=== PATIENT | male | born 1930 | race Caucasian/White ===

== ENCOUNTER 2017-03-14 21:11 | Inpatient (IN) | payer MEDICARE, OTHER ==
[2017-03-14 21:53] LABS: #Eosinphils 0.4 thou/uL (0.0-0.7); #Lymphocytes 1.8 thou/uL (1.20-3.40); #Monocytes 0.9 thou/uL (0.11-0.59); #Neutrophils 5.4 thou/uL (1.40-6.50); %Basophils 0.3 % (0.0-1.0); %Eosinophils 5.1 % (0.0-10.0); %Lymphocytes 20.8 % (21.0-51.0); %Monocytes 10.4 % (0.0-10.0); Hematocrit 39.5 % (42.0-52.0); Mean Platelet Volume 8.3 fL (7.4-10.4); White Blood Cell (WBC) Count 8.5 thou/uL (4.8-10.8)
[2017-03-14 22:01] LABS: PTT 30.7 SEC (22.9-36.1); Prothrombin Time 13.3 SEC (12.0-14.7)
[2017-03-14 22:13] LABS: ALT (SGPT) 22 U/L (8-55); AST (SGOT) 26 U/L (5-34); Alkaline Phosphatase 69 U/L (40-150); Anion Gap 14 mmol/L (10-20); BUN (Urea Nitrogen) 18 mg/dL (8.4-25.7); Bilirubin, Total 0.5 mg/dL (0.2-1.2); CK (CPK) 112 U/L (30-200); Calc. Creatinine Clearance 0 mL/min (70-130); Carbon Dioxide 25 mmol/L (23-31); Chloride 101 mmol/L (98-107); Estimated GFR-MDRD 68; Globulin 3.5 g/dL (2.4-3.5); Lipase 102 U/L (8-78); Magnesium 2.1 mg/dL (1.6-2.6)
[2017-03-14 22:17] LABS: Troponin I 0.013 ng/mL (< 0.028)
--- NOTE | 2017-03-14 23:58 | RAD ---
PORTABLE CHEST: Date: 03-14-17 Provided Clinical History: Chest pain. FINDINGS: Comparison 06-20-14. Heart size is within normal limits for portable technique. The lungs are hypoinflated. Pleural and/or parenchymal opacity at the left lung base may be present. Median sternotomy changes are seen. No azucena dence for pneumothorax. IMPRESSION: Hypoinflated exam with possible left basilar and pleural parenchymal opacity. Follow up is recommende d. POS: [facility]
[2017-03-15 00:34] LABS: Bilirubin Negative (Negative); Blood, Urine Large (Negative); Glucose, Urine (Dipstick) Negative (Negative); Ketone, Urine Negative (Negative); Nitrite Negative (Negative); Protein, Urine (Dipstick) Trace mg/dL (Neg-Trace); Urobilinogen 0.2 mg/dL (0.2-1.0)
[2017-03-15 00:36] LABS: Bacteria/HPF None Seen HPF (None Seen); Hyaline Casts/LPF 0-3 HYALINE CAST LPF (0-3 Hyaline); RBC/HPF GREATER THAN 50-TNTC HPF (0-3); Squamous Epithelial None Seen HPF (0-3); WBC/HPF 0-3 HPF (0-3)
[2017-03-15] MEDS ORDERED: hydrALAZINE 20 MG/ML VIAL ONE (02:11)
[2017-03-15] MEDS ORDERED: Nitroglycerin 2% Ointment 1 INCH/1 GM Packet ONE (02:34)
[2017-03-15 03:54] LABS: Troponin I 0.043 ng/mL (< 0.028)
--- NOTE | 2017-03-15 06:28 | HP-2 ---
TIME OF DATE OF SERVICE: 299 DATE OF ADMISSION: 03/15/2017 CODE STATUS: FULL. PRIMARY CARE PHYSICIAN: Dr. Regino Friend ATTENDING: Dr. Jasen Bell RESIDENT: Dr. Victor Hugo Tejada HISTORIAN: The patient. SPECIALISTS: Cardiology, Dr. William. CHIEF COMPLAINT: High blood pressure. HISTORY OF PRESENT ILLNESS: Jose Mascorro is an 87-year-old man with past medical history of hyperten balbir, hyperlipidemia, and coronary artery disease status post CABG x2 and stent placement x2, present s with high blood pressure. This evening he was at home and had a sudden sensation that legs were go ing to give out and he abruptly sat down on the ground. At that time, his checked his blood pre ssure and his systolic blood pressure was 215. He states that he is compliant on his medications. Jose vasquez did not have any other symptoms. He denies loss of consciousness. He denies any seizure-like acti vity. He denies any headache or vision changes. He also reports hematuria for the past 2 days as we ll. He denies any chest pain, dyspnea, abdominal pain or flank pain. Blood pressure at home normall y runs around the 150s/60. The patient is currently asymptomatic. In the ER, the patient received h ydralazine, aspirin, and nitro. PAST MEDICAL HISTORY: 1. Coronary artery disease, status post CABG and stent placement. 2. Hypertension. 3. Hyperlipidemia. PAST SURGICAL HISTORY: 1. CABG in 2012 x 2. 2. Stent placement x2. 3. Hernia repair. 4. Aortic valve replacement. 5. Tonsillectomy. ALLERGIES: No known drug allergies. MEDICATIONS: 1. Atorvastatin 20 mg p.o. at bedtime. 2. Omeprazole 20 mg p.o. daily. 3. Lisinopril 20 mg p.o. daily. 4. Doxazosin 2 mg p.o. daily. 5. Aspirin 325 mg p.o. daily. 6. Furosemide 20 mg p.o. daily. 7. Carvedilol 3.125 mg p.o. b.i.d. 8. Hydralazine 75 mg p.o. b.i.d. with meals. FAMILY HISTORY: Unremarkable. SOCIAL HISTORY: The patient denies alcohol, smoking or drug use. The patient is and his 63 year anniversary was the day of admission. REVIEW OF SYSTEMS: Twelve point review of systems including general, eyes, ENT, respiratory, CV, GI, , skin, musculoskeletal, neuro and psych were reviewed and were negative, unless otherwise stated in the HPI. PHYSICAL EXAMINATION: VITAL SIGNS: Blood pressure 191/103, pulse 69, respiratory rate 16, temperature is 98.1, pulse ox 96 % on room air, current weight 74 kilograms. GENERAL: The patient is alert and oriented x4, in no acute distress. Well-developed, well-nourished and appropriately interactive. EYES: Pupils equal, round, react to light and accommodation. Extraocular muscles intact. Conjuncti vae within normal limits. ENT: Tympanic membranes pearly murray without bulging or erythema. Nasal mucosa and oropharynx within normal limits. NECK: Supple without lymphadenopathy or thyromegaly. CARDIOVASCULAR: Regular rate and rhythm. No murmurs or gallops. Radial pulses and pedal pulses equ al bilaterally. RESPIRATORY: Normal effort, no retractions. LUNGS: Clear to auscultation. SKIN: Warm and dry without cyanosis or lesions. ABDOMEN: Soft, nontender, bowel sounds x4. No mass or distention. EXTREMITIES: No clubbing or cyanosis. There is trace bilateral lower extremity edema. MUSCULOSKELETAL: Structure and tone within normal limits. Full range of motion. NEUROLOGIC: No focal deficits. Sensation within normal limits. PSYCHIATRIC: Appropriate. LABORATORY DATA: White blood cell count 8.5, hemoglobin 12.8, hematocrit 39.5, MCV 85. Sodium 136, potassium 3.8, chloride 101, carbon dioxide 25, BUN 18, creatinine 1.04, GFR 68, glucose 187, calcium 9.0, total protein 7.0, albumin 3.5, total bilirubin 0.5, AST 26, ALT 22, alkaline phosphatase 69. Prolactin 38.75, mag 2.1. D-dimer 1.79. PT 13.3, INR 1.0, PTT 30.7, CK 112, CK-MB 3.0, troponin 0.0 13, lipase 102. BNP 337. UA significant for large blood, trace leukocyte esterase and greater than 50 red blood cells. EKG showed sinus rhythm with PVCs. No ischemic changes. We will repeat EKG thi s morning. Chest x-ray showed hypoinflated exam with possible left basilar and pleural parenchymal o pacity. ASSESSMENT AND PLAN: An 87-year-old man presents with hypertensive urgency with past medical histor y of hypertension, hyperlipidemia, coronary artery disease status post coronary artery bypass graft x 2 and stent placement x2. 1. Hypertensive urgency. He was placed on tele observation. Restart home blood pressure medication s. Trend cardiac enzymes. Check transthoracic echocardiogram. Check TSH. Recheck EKG this morning . Heart healthy diet. Monitor blood pressures. Consider Cardiology consult. 2. Hematuria, 4 episodes over the last 2 days. History of enlarged prostate. No signs or physical symptoms of kidney stones or urinary tract infection. Urine was not grossly bloody in the ER. Trend H&H. CT of the abdomen showed no bladder mass. May need outpatient workup. We are checking urine culture here. 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 No history of seizure activity. 4. Hypertension. Continue home medications. 5. Hyperlipidemia. Continue home statin. 6. Coronary artery disease, hold aspirin at this time. 7 Activity: Ambulate with assist. 8. Diet: Heart healthy. 9. Code status: Full code. DISPOSITION/LENGTH OF HOSPITAL STAY: 1-2 days. Symptomatic medications will be provided. History and physical exam as well as management discussed with Dr. Bell.
[2017-03-15 06:38] LABS: Troponin I 0.047 ng/mL (< 0.028)
--- NOTE | 2017-03-15 07:33 | CT ---
PRELIMINARY REPORT/[facility]/EMERGENCY AFTER HOURS PROCEDURE: EXAM: CT Head Without Intravenous Contrast CLINICAL HISTORY: 87 years old, male; Signs and symptoms; Altered mental status/memory loss; Patient HX: Ams/confusion; 87m presents with high blood pressure this evening. Patient reports a history of high blood pressure . Denies chest pain and shortness of breath. Reports he felt like his "legs were going to give out" so he sat down and then checked his blood pressure. Reports it was 215 systolic. Report s he is compliant with his medication. Also reports hematuria x 2 days. Denies abdominal pain, denies flank pain. TECHNIQUE: Axial computed tomography images of the head/brain without intravenous contrast. COMPARISON: No relevant prior studies available. FINDINGS: Brain: Age appropriate atrophy and small vessel ischemic change. No mass effect, midline shift or ext ra axial fluid collections. Ojeda-white matter differentiation is normal. No hemorrhage. Ventricles: Unremarkable. No ventriculomegaly. Bones/joints: Unremarkable. No acute fracture. Soft tissues: Unremarkable. Vasculature: Carotid and vertebral artery atherosclerotic calcification. Sinuses: Mucosal thickening in the ethmoid and maxillary sinuses. Mastoid air cells: Unremarkable as visualized. No mastoid effusion. Orbits: The patient has had bilateral lens replacement surgery. IMPRESSION: No acute findings. Thank you for allowing us to participate in the care of your patient. Dictated and Authenticated by: Luís Shields MD 03/15/2017 1:52 AM Central Time ([place] & [place]) FINAL REPORT EXAM: NONCONTRAST HEAD CT HISTORY: Hypertension. Altered mental status. Weakness. COMPARISON: None. TECHNIQUE: Noncontrast head CT is performed from skull base to skull vertex. FINDINGS/IMPRESSION: This report is in agreement with the preliminary report by [facility]. No acute intracranial process. POS: [facility]
--- NOTE | 2017-03-15 07:55 | CT ---
PRELIMINARY REPORT/[facility]/EMERGENCY AFTER HOURS PROCEDURE: EXAM: CT Angiography Chest With Intravenous Contrast CLINICAL HISTORY: 87 years old, male; Signs and symptoms and abnormal findings; Abnormal lab test; Other: Elevated d-di triston; Other: Hematuria; Abnormal diagnostic tests; Patient HX: 87m presents with high blood pressure t his evening. Patient reports a history of high blood pressure. Denies chest pain and shortness of juvenal ath. Reports he felt like his "legs were going to give out" so he sat down and then checked his blood pressure. Reports it was 215 systolic. Reports he is compliant with his medication. Also reports hem aturia x 2 days. Denies abdominal pain, denies flank pain. TECHNIQUE: Axial computed tomographic angiography images of the chest with intravenous contrast using pulmonary embolism protocol. MIP reconstructed images were created and reviewed. Coronal reformatted images were created and reviewed. CONTRAST: 95 mL of ISOVUE 370 administered intravenously. COMPARISON: No relevant prior studies available. FINDINGS: Pulmonary arteries: Unremarkable. No pulmonary embolism. Aorta: No acute findings. No thoracic aortic aneurysm or dissection. Lungs: Atelectasis at the lung bases. No mass. Pleural space: There is a small left pleural effusion. No pneumothorax. Heart: Cardiomegaly with coronary artery and valvular calcifications. No significant pericardial effusion. No evidence of RV dysfunction. Mediastinum: There is a small hiatal hernia. Bones/joints: No acute fracture. No dislocation. Soft tissues: Unremarkable. Lymph nodes: Unremarkable. No enlarged lymph nodes. IMPRESSION: No acute findings. Hiatal hernia. Cardiomegaly. Small left pleural effusion. Thank you for allowing us to participate in the care of your patient. Dictated and Authenticated by: Luís Shields MD 03/15/2017 2:14 AM Central Time ([place] & [place]) FINAL REPORT CT ARTERIOGRAM CHEST WITH IV CONTRAST AND 3D MIP IMAGIN03/15/2017 Performed on an emergency basis at 0122 hours. HISTORY: Chest pain. Dyspnea. FINDINGS/IMPRESSION: The findings agree with the preliminary report by Dr. Shields from [facility]. There is no CT e vidence of pulmonary embolus. Heart is slightly enlarged. There is minimal pleural effusion and mil d patchy bibasilar infiltrates that are less pronounced than on the prior study from 06/20/2014. Code QA. POS: [facility]
--- NOTE | 2017-03-15 08:17 | CT ---
PRELIMINARY REPORT/[facility]/EMERGENCY AFTER HOURS PROCEDURE: EXAM: CT Abdomen and Pelvis With Intravenous Contrast CLINICAL HISTORY: 87 years old, male; Signs and symptoms and abnormal findings; Abnormal lab test; Other: Elevated d-di triston; Other: Hematuria; Abnormal diagnostic tests; Patient HX: 87m presents with high blood pressure t his evening. Patient reports a history of high blood pressure. Denies chest pain and shortness of juvenal ath. Reports he felt like his "legs were going to give out" so he sat down and then checked his blood pressure. Reports it was 215 systolic. Reports he is compliant with his medication. Also reports h ematuria x 2 days. Denies abdominal pain, denies flank pain. TECHNIQUE: Axial computed tomography images of the abdomen and pelvis with intravenous contrast. MIP reconstructed images were created and reviewed. Coronal reformatted images were created and reviewed. CONTRAST: 95 mL of ISOVUE 370 administered intravenously. COMPARISON: No relevant prior studies available. FINDINGS: ABDOMEN: Liver: Unremarkable. No mass. Gallbladder and bile ducts: Unremarkable. No calcified stones. No ductal dilation. Pancreas: Unremarkable. No mass. No ductal dilation. Spleen: Unremarkable. No splenomegaly. Adrenals: Unremarkable. No mass. Kidneys and ureters: Unremarkable. No solid mass. No hydronephrosis. Stomach and bowel: Small ventral hernia containing mesenteric fat but no bowel. No obstruction. No m ucosal thickening. Appendix: No findings to suggest acute appendicitis. PELVIS: Bladder: Unremarkable. No mass. Reproductive: The prostate is enlarged, measuring 5.7 x 4.9 cm. ABDOMEN and PELVIS: Intraperitoneal space: Unremarkable. No free air. No significant fluid collection. Bones/joints: No acute fracture. No dislocation. Soft tissues: Unremarkable. Vasculature: There is severe aortoiliac atherosclerosis. No abdominal aortic aneurysm. Lymph nodes: Unremarkable. No enlarged lymph nodes. IMPRESSION: Ventral hernia. Prostatomegaly. Severe atherosclerosis. Thank you for allowing us to participate in the care of your patient. Dictated and Authenticated by: Luís Shields MD 03/15/2017 2:14 AM Central Time ([place] & [place]) FINAL REPORT CT ABDOMEN AND PELVIS WITH CONTRAST: Date: 03/15/17 HISTORY: Kidney mass. COMPARISON: None. FINDINGS: Please see the CT angiogram of the chest for intrathoracic findings. There is a fat-containing ventra l hernia supraumbilical just below the xiphoid process. The spleen, liver, and gallbladder are all un remarkable. Moderate size sliding hiatal hernia. There is low grade inflammatory stranding around the pancreatic tail. No renal mass is appreciated. Moderate atherosclerotic plaque throughout the aortoi liac system. No aneurysmal dilatation. No retroperitoneal adenopathy. No dilated loops of large or sm all bowel. There is mild diverticular disease of the sigmoid colon without active inflammation. No fr ee intraperitoneal gas or fluid. Moderate degenerative disc space height loss L4-5 and L5-S1 with end plate sclerosis. There appears t o be further loss of normal density to the trabecula of the axial skeleton which can be seen with ronald donal hyperparathyroidism. IMPRESSION: 1. Low grade inflammatory stranding around the pancreatic tail may represent focal pancreatitis. Rec ommend correlation with patient's lab values. 2. Skeletal findings suggestive of hyperparathyroidism. 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 3. Fat-containing subxiphoid ventral hernia. This report is in agreement with the preliminary report given by [facility]. POS: [facility]
[2017-03-15 11:13] LABS: Troponin I 0.045 ng/mL (< 0.028)
[2017-03-15] MEDS ORDERED: ISOVUE-370 76%-LOCM 1 ML ONE (11:42)
--- NOTE | 2017-03-15 13:19 | PDOC.EVN ---
Attending Addendum - Attending Addendum I personally evaluated the patient and discussed the management with Dr. Tejada. I agree with the History, Examination, Assessment and Plan documented in his H& P with any addition or exceptions noted below. Patient with normally well controlled BP admitted for elevation of blood pressure and generalized weakness. His exam is overtly normal. It is possible that he did not take his medications yesterday. We will resume home BP regimen and up titrate as needed. Echo has been ordered as patient has no known history of cardiac disase but has elevated BNP. He also reports hematuria over the last few days, with apparent small clots in his urine noted today by nursing. We will work to visually confirm, and likely consult urology at that time. Not on anticoagulants, and Hgb stable. CT did not show pelvic mass but did indicate prostate enlargement. Will await further recs but likely needs cystoscopy inpatient versus outpatient. Trend trops though likely elevated 2/2 HTN urgency and unlikely to be ACS related.
[2017-03-15 14:14] VITALS: BMI 27.7
[2017-03-15] MEDS: Lisinopril 20 MG TAB PO SCH ×2 (14:26→20:37)
[2017-03-15] MEDS: hydrALAZINE 25 MG TAB PO SCH ×2 (14:26→20:37)
[2017-03-15] MEDS: Doxazosin Mesylate 4 MG TAB PO SCH (14:26)
[2017-03-15] MEDS: Carvedilol 3.125 MG TAB PO SCH ×2 (14:26→16:42)
[2017-03-15] MEDS: Furosemide 20 MG TAB PO SCH (14:26)
[2017-03-15] MEDS ORDERED: Atorvastatin Calcium 20 MG TAB PO SCH (21:00)
[2017-03-16 05:57] LABS: #Eosinphils 0.2 thou/uL (0.0-0.7); #Lymphocytes 1.5 thou/uL (1.20-3.40); #Monocytes 0.7 thou/uL (0.11-0.59); #Neutrophils 6.2 thou/uL (1.40-6.50); %Basophils 0.1 % (0.0-1.0); %Eosinophils 2.8 % (0.0-10.0); %Lymphocytes 17.3 % (21.0-51.0); %Monocytes 8.5 % (0.0-10.0); Hematocrit 36.4 % (42.0-52.0); Mean Platelet Volume 8.2 fL (7.4-10.4); Red Blood Cell (RBC) Count 4.24 mill/uL (4.70-6.10); White Blood Cell (WBC) Count 8.8 thou/uL (4.8-10.8)
--- NOTE | 2017-03-16 06:09 | CON ---
DATE OF CONSULTATION: 03/15/2017 This is an 87-year-old white male I have been asked to see today, 03/15/2017, because of gross hematu lamar. He came in today with hypertension, weakness, fatigue, not feeling well. He was found to be fa irly significantly hypertensive. He also had some abnormal cardiac studies and he is being evaluated by Cardiology and had some nitroglycerin on his chest. He stated he started having some blood in hi s urine 2 days ago, did not have fever, chills, did not have flank pain, did not have dysuria, just s ome blood. The only medicine he takes that would affect his clotting ability is aspirin, and he is c urrently being held on that. He had prostate surgery a number of years ago in [place], [place] for benign disease. He has difficulty with urinating. He saw Dr. Cortez Galdamez in the past, but has not s een him recently, has no diagnosis of prostate cancer. He has never had kidney stones. He has not h ad any bladder infections to his knowledge. He has never seen blood in his urine before. He gets up at most, once at night, sometimes not at all. He has no daytime urgency or incontinence. He has go t what he describes as a good force of stream and feels like he empties okay. He has no family histo ry of prostate cancer. PAST MEDICAL HISTORY: He has had coronary artery disease. He has had both bypass and stent placemen t. He has hypertension and hyperlipidemia, reflux disease. PAST SURGICAL HISTORY: He has had hernia repairs. He has had a valve replacement and he has had ton sils. ALLERGIES: He has no drug allergies. ROUTINE MEDICATIONS: Atorvastatin, omeprazole, lisinopril, Cardura 2 mg daily, aspirin, Lasix, carve dilol, hydralazine. SOCIAL HISTORY: Does not smoke. PHYSICAL EXAMINATION: His flanks are nontender. His abdomen is soft. Bladder is not distended. He is not circumcised, but there is no phimosis or lesions. Testicles descended without mass or tender ness with his blood pressure and his potential cardiac problems. I did not do a rectal exam today. LABORATORY: His hemoglobin is 12.8. His white count is 8.5. His platelet count is 227. His coags are normal. It does not appear that he has a creatinine drawn. He has got some cardiac enzymes. Harish vasquez will go ahead do a.m. lab and order Chem-7. I do not see any microbiology, his urinalysis shows gr eater than 50 red cells, 0-3 white cells, no bacteria were seen. His vital signs currently, he is af ebrile. Blood pressure is still up, but is not anywhere near as high as it was. IMPRESSION: Gross hematuria, new finding on the 87-year-old gentleman with no prior significant uro logic history except for a TURP years ago in [place], [place]. I have reviewed his CAT scan and to me the kidneys look fine. I did not see any solid or cystic mass. No hydronephrosis. The bladder w as not empty, but there is no filling defect obviously noted and the prostate is enlarged. PLAN: At this time, will be to continue with serial three glass urine, I have reviewed it. It is cl earing, there is little clot in his last one, but it is really not that bloody, hopefully we can avoi d a catheter. We will hold his aspirin. He will need a cystoscopic exam as long as his urine is mary carmen aring. We will just hold on doing the cystoscopy until March. We will check urine culture to be s ure he does not have an associated urinary tract infection, but that would seem unlikely.
[2017-03-16 06:27] LABS: Anion Gap 10 mmol/L (10-20); BUN (Urea Nitrogen) 9 mg/dL (8.4-25.7); Calc. Creatinine Clearance 70 mL/min (70-130); Calcium 8.5 mg/dL (7.8-10.44); Carbon Dioxide 26 mmol/L (23-31); Chloride 101 mmol/L (98-107); Estimated GFR-MDRD 85
--- NOTE | 2017-03-16 08:44 | PDOC.FM ---
Addendum entered and electronically signed by Eamon Cervantes MD 03/16/17 11:34 : Working up to r/o Stroke After hearing from walking program assessment and talking with patient went and did a full neuro exam. They said he had a real abnormal gait and really weak. Came in due CN2,3,4,5,5 intact. CN7 possibly affected as tongue protruded right, possible facial droop noted when asking him to smile. CN 8,9,10, 11,12 intact. Strength 5/5 in UE bilaterally. Strength 5/5 in LE bilaterally. 2/3 clonus noted in R. leg Dysmetria noted on finger to nose to finger test. Rapid alternating movments negative heel to valera negative. Gait was very abnormal. Had a high kick. Very uncoordinated. wobbly. Very weak. could only take a few steps. Could not test romberg as patient was too weak to hold himself up. Exam concerning for possible stroke, possible insult to cerebellum. CT head was Negative. Will order MRI at this time. Original Note: - Subjective Subjective: Pt doing well this morning. Says he is ready to go home. Denies any headaches, dizziness, lightheadness. Denies any chest pain. Denies any acute events overnight. Says blood in urine is improving. Says it is getting traffic chief. - Objective MAR Reviewed: Yes Vital Signs & Weight: Vital Signs (12 hours) Temp Pulse Resp BP Pulse Ox 03/16/17 08:10 97.4 F L 81 16 200/90 H 97 03/16/17 07:25 98.0 F 66 20 03/16/17 04:15 98.0 F 66 20 174/76 H 96 03/15/17 23:13 98.8 F 68 18 168/73 H 96 Weight Weight 80.314 kg I&O: 03/15/17 03/16/17 03/17/17 06:59 06:59 06:59 Intake Total 240 Output Total 1200 Balance -960 Result Diagrams: 03/16/17 05:02 03/16/17 05:02 Radiology Reviewed by me: Yes Radiology: 03/15 CTA: No acute findings. Minimal pleural effusion and mild patchy bibasilar infiltrates that are less pronounced from prior study. Cardiomegaly 03/15 CT head: No acute findings 03/15 CT Ab/Pelvis: Low grade inflammatory stranding around pancreatic tail may represent focal pancreatitis. Skeletal findings suggestive of hyperparathyroidism. 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 Fat containg subxiphoid ventral hernia. \ 03/15 CXR: hypoinflated exam w/ possible left basilar and pleural parenchymal opacity. <Eamon Cervantes - Last Filed: 03/16/17 08:42> - Objective Vital Signs & Weight: Vital Signs (12 hours) Temp Pulse Resp BP BP Pulse Ox 03/16/17 11:06 97.6 F 61 18 203/98 H 97 03/16/17 09:29 153/67 H 03/16/17 09:28 81 03/16/17 08:10 97.4 F L 81 16 200/90 H 97 03/16/17 07:25 98.0 F 66 20 03/16/17 04:15 98.0 F 66 20 174/76 H 96 Weight Weight 80.314 kg I&O: 03/15/17 03/16/17 03/17/17 06:59 06:59 06:59 Intake Total 240 250 Output Total 1200 Balance -960 250 Result Diagrams: 03/16/17 05:02 03/16/17 05:02 <Jasen Bell - Last Filed: 03/16/17 12:26> Phys Exam - Physical Examination HEENT: PERRLA, moist MMs, oral pharynx no lesions Neck: no nodes, no JVD, supple, full ROM Respiratory: no wheezing, no rales, no rhonchi, clear to auscultation bilateral Cardiovascular: RRR, no significant murmur, no rub Gastrointestinal: soft, non-tender, no distention, positive bowel sounds Musculoskeletal: no edema, pulses present Neurological: non-focal, moves all 4 limbs Lymphatic: no nodes Psychiatric: normal affect Skin: no rash, normal turgor <Eamon Cervantes - Last Filed: 03/16/17 08:42> Dx/Plan (1) Hypertensive urgency Code(s): I10 - ESSENTIAL (PRIMARY) HYPERTENSION Status: Acute Plan: SBP still elevated in 170 to 200 overnight and this morning. DBP stable. Maxed out on 3 of his BP medications. Increased Carvedilol at this time. -May have some underlying renal dz causing resistant htn. Cr stable though at this time. -Elevated BP may be related to age and anatomy of vessels. Has high difference b /w SBP and DBP. -Will continue to monitor BP and adjust carvedilol more. -Denies any sx's of htn emergency at this time. (2) Hematuria Code(s): R31.9 - HEMATURIA, UNSPECIFIED Status: Acute Plan: -Bloody urine starting a few days ago. Had a few clots pass. Still able to pee at this time. -Urology Consulted- Dr. Blake. -Got serial urines x3. Improved over the course. Plan is to f/u outpt with possible cystoscopy in Mar. -Will follow recommendations (3) HLD (hyperlipidemia) Code(s): E78.5 - HYPERLIPIDEMIA, UNSPECIFIED Status: Chronic Plan: continue home meds (4) S/P CABG (coronary artery bypass graft) Code(s): Z95.1 - PRESENCE OF AORTOCORONARY BYPASS GRAFT Status: Chronic Plan: -Aspirin being held due to hematuria. -Continuing all other home medications at this time. <Eamon Cervantes - Last Filed: 03/16/17 08:42> Attending Addendum - Attending Addendum I personally evaluated the patient and discussed the management with Dr. Cervantes. I agree with the History, Examination, Assessment and Plan documented above with any addition or exceptions noted below. Patient continues to have elevated blood pressures. On questioning this morning , he reports abnormal gait that began yesterday associated with diffuse lower extremity weakness. He has an abnormal neuro exam that is concerning for CVA or mass. Elevated prolactin. Will obtain MRI brain. Needs escalation of BP meds to get better control of uncontrolled HTN. <Jasen Bell - Last Filed: 03/16/17 12:26>
[2017-03-16] MEDS ORDERED: Ondansetron HCl/PF 4 MG/2 ML Vial IVP PRN (09:05)
[2017-03-16] MEDS ORDERED: Ondansetron HCl 4 MG/5 ML UDCUP PO PRN (09:05)
[2017-03-16] MEDS ORDERED: Acetaminophen 325 MG TAB PO PRN (09:05)
[2017-03-16] MEDS: hydrALAZINE 25 MG TAB PO SCH ×2 (09:28→21:07)
[2017-03-16] MEDS: Furosemide 20 MG TAB PO SCH (09:29)
[2017-03-16] MEDS: Carvedilol 6.25 MG TAB PO SCH ×2 (09:29→17:16)
[2017-03-16] MEDS: Lisinopril 20 MG TAB PO SCH ×2 (09:29→21:08)
[2017-03-16] MEDS ORDERED: Potassium Chloride 20 MEQ TAB PO SCH (09:30)
[2017-03-16] MEDS: Doxazosin Mesylate 4 MG TAB PO SCH (09:32)
[2017-03-16] MEDS ORDERED: Gadobenate Dimeglumine 529 MG/1 ML (20ML VIAL) ONE (12:08)
--- NOTE | 2017-03-16 15:54 | MRI ---
MRI BRAIN WITH AND WITHOUT CONTRAST: 03/16/17 Multiplanar and multisequential imaging of the brain obtained pre and postcontrast. Postcontrast imag es were obtained after administration of 16 mL of Multihance IV. HISTORY: Altered mental status. Questioned stroke. Correlation made to CT of 03/15/17. FINDINGS: There is mild cortical atrophy. Very mild ischemic white matter changes are seen. There is no evidence of restricted diffusion. No evidence of mass, infarct or hemorrhage. No abnormal enhancement identified. Intracranial internal carotid arteries and proximal cerebral arteries show f low voids. There is increased T2 signal in the left mastoid air cells consistent with mucosal edema. IMPRESSION: No evidence of acute infarct. There is moderate cortical atrophy and very mild ischemic change noted. POS: [facility]
[2017-03-16] MEDS ORDERED: Labetalol HCl 100 MG/20 ML VIAL SLOW IVP PRN (17:20)
[2017-03-16] MEDS ORDERED: Spironolactone 25 MG TAB PO SCH (17:30)
[2017-03-16] MEDS: Atorvastatin Calcium 40 MG TAB PO SCH (21:07)
[2017-03-16] MEDS: Famotidine 20 MG TAB PO SCH (21:07)
--- NOTE | 2017-03-16 22:39 | CON ---
DATE OF CONSULTATION: 03/16/2017 REFERRING PROVIDER: Dr. Markus Bush. REASON FOR CONSULTATION: Bilateral lower extremity weakness. HISTORY OF PRESENT ILLNESS: Mr. Mascorro is a pleasant 87-year-old male who has been consulte d for evaluation of bilateral lower extremity weakness and abnormal gait. History is obtained from [facility] as well as patient who are both good historians. Patient reports that on Tuesday aftern oon he had a sudden onset of weakness in both legs and he fell to the ground. He noted that he was h aving difficulty with coordinating with his legs. He also was having a hard time with standing up an d walking. For this reason, he decided to present to the [facility]. He did not have any numbness, tingling, or weakness in lower extremities. He did not have any numbness, tingling, o r weakness in upper extremities. There was no complaint of headache, neck pain, or back pain, althou gh mentions that he did complain of having a back pain when he stooped down. He did not complai n of having vision changes, diplopia, ptosis, facial numbness, dysarthria, or dysphagia, lightheadedn ess, or dizziness. reports that his balance has gotten a little bit better since he has been he re, but he still requires walker for support. PAST MEDICAL HISTORY: Significant for hypertension, hyperlipidemia, coronary artery disease. PAST SURGICAL HISTORY: Significant for CABG in 2012, cardiac stent placement x2, hernia repair, aort ic valve replacement, and tonsillectomy. CURRENT MEDICATIONS: Please review MAR. ALLERGIES: No known drug allergies. FAMILY HISTORY: Noncontributory. SOCIAL HISTORY: He denies smoking, alcohol use, or illicit drug use. He is . REVIEW OF SYSTEMS: As mentioned in the HPI, otherwise negative. PHYSICAL EXAMINATION: VITAL SIGNS: Blood pressure of 196/87, pulse of 71, temperature of 97.9, respirations of 16, O2 sats of 95% on room air. GENERAL: Well-developed, well-nourished male in no apparent distress. RESPIRATORY: Clear to auscultation bilaterally. CARDIOVASCULAR: Regular rate and rhythm. NEUROLOGIC: Mental status: Patient is awake, alert, oriented x3. Speech and language: Fluent spee ch. Cranial nerves: Pupils are 3 mm and reactive. Visual yeager are intact, Extraocular muscles ar e intact. No nystagmus is noted. Face is symmetric. Tongue and uvula are midline. Motor exam show ed normal tone and bulk with 5/5 strength in both upper and lower extremities. Sensory: Sensation i s intact and symmetric. Deep tendon reflexes 2+ reflexes in both upper and lower extremities. Jono ski: Plantar responses flexion bilaterally. Coordination intact to [id number] tapping bilat erally. There was a mention of clonus noted by physical therapist on the right lower extremity as we ll as left lower extremity; however, I did not appreciate any clonus on my exam, there was also menti on of a facial droop noted per resident report, however, again I do not appreciate any facial droop o r facial asymmetry on my exam. [id number] test on my examination was normal on both sides. LABORATORY DATA: Reviewed, which included CBC, BMP, troponin, TSH, liver panel, CK-MB, CPK, and urin alysis, which is significant for hemoglobin 11.7, hematocrit of 36.4. Sodium of 134, potassium 3.4, troponin of 0.045. BNP of 337.3, otherwise unremarkable. IMAGING STUDIES: MRI brain without contrast was reviewed, which showed no acute intracranial abnorma lity. Echocardiogram results were reviewed, which showed EF of 60-65% without any wall motion abnorm ality or intracardiac mass or thrombus. There is moderate mitral and tricuspid regurgitation noted. IMPRESSION: Bilateral lower extremity weakness, unknown clear etiology. Mr. Mascorro is a pleasant 87- year-old male who presented with the acute onset of bilateral lower extremity weakness and difficulty with gait imbalance. On exam, I do not appreciate any new focal neurological deficit. Al though, I was not able to get him up off the bed to walk. I have reviewed his MRI brain with and wit hout contrast that was done earlier today, which showed no acute intracranial abnormality. At this t theresa, I will recommend continuing physical therapy. I would obtain MRI C-spine and L-spine without co ntrast to rule out underlying spinal Pathology. Continue supportive care. Thank you for consultation.
[2017-03-17] MEDS ORDERED: hydrALAZINE 20 MG/ML VIAL SLOW IVP SCH (00:15)
[2017-03-17] MEDS: Carvedilol 6.25 MG TAB PO SCH ×2 (07:21→18:17)
[2017-03-17] MEDS: Lisinopril 20 MG TAB PO SCH ×2 (07:22→20:00)
[2017-03-17] MEDS: hydrALAZINE 25 MG TAB PO SCH ×3 (07:22→22:08)
[2017-03-17 07:33] LABS: #Eosinphils 0.1 thou/uL (0.0-0.7); #Monocytes 0.8 thou/uL (0.11-0.59); #Neutrophils 7.8 thou/uL (1.40-6.50); %Basophils 0.2 % (0.0-1.0); %Eosinophils 1.1 % (0.0-10.0); %Lymphocytes 10.3 % (21.0-51.0); %Monocytes 8.3 % (0.0-10.0); Hematocrit 38.9 % (42.0-52.0); Mean Platelet Volume 8.1 fL (7.4-10.4); Red Blood Cell (RBC) Count 4.56 mill/uL (4.70-6.10); White Blood Cell (WBC) Count 9.8 thou/uL (4.8-10.8)
[2017-03-17] MEDS: Furosemide 20 MG TAB PO SCH ×2 (08:08→15:16)
[2017-03-17] MEDS: Doxazosin Mesylate 4 MG TAB PO SCH (08:08)
[2017-03-17] MEDS: Spironolactone 25 MG TAB PO SCH (08:08)
[2017-03-17] MEDS: Famotidine 20 MG TAB PO SCH ×2 (08:08→19:59)
[2017-03-17 08:12] LABS: Anion Gap 13 mmol/L (10-20); BUN (Urea Nitrogen) 9 mg/dL (8.4-25.7); Calc. Creatinine Clearance 71 mL/min (70-130); Calcium 8.7 mg/dL (7.8-10.44); Carbon Dioxide 21 mmol/L (23-31); Chloride 98 mmol/L (98-107); Estimated GFR-MDRD Greater than 90
--- NOTE | 2017-03-17 08:33 | PDOC.FM ---
- Subjective Subjective: Pt reports doing fine this morning. Denies any acute events overnight. Denies any chest pain. Denies any headaches, change in vision, or diziness. Denies any numbness or tingling. Still reports being very weak when he tries and stands and tries to walk. - Objective Vital Signs & Weight: Vital Signs (12 hours) Temp Pulse Resp BP BP Pulse Ox 03/17/17 08:00 75 157/77 H 03/17/17 03:39 98.2 F 63 18 194/77 H 94 L 03/17/17 01:11 183/69 H 03/17/17 00:08 68 209/79 H 03/16/17 23:04 98.8 F 69 16 211/82 H 95 Weight Weight 77.519 kg I&O: 03/16/17 03/17/17 03/18/17 06:59 06:59 06:59 Intake Total 240 660 Output Total 1200 1100 Balance -960 440 Result Diagrams: 03/17/17 06:57 03/17/17 06:57 Radiology Reviewed by me: Yes Radiology: MRI Head: Negative for any acute ischemia, mod cortical atrophy, and mild ischemic changes <Eamon Cervantes - Last Filed: 03/17/17 08:31> - Objective Vital Signs & Weight: Vital Signs (12 hours) Temp Pulse Resp BP Pulse Ox 03/17/17 12:16 75 03/17/17 11:10 186/86 H 03/17/17 08:00 75 157/77 H 03/17/17 07:15 97.4 F L 70 20 216/90 H 95 03/17/17 03:39 98.2 F 63 18 194/77 H 94 L 03/17/17 01:11 183/69 H Weight Weight 77.519 kg I&O: 03/16/17 03/17/17 03/18/17 06:59 06:59 06:59 Intake Total 240 660 Output Total 1200 1100 Balance -960 -440 Result Diagrams: 03/17/17 06:57 03/17/17 06:57 <Jasen Bell - Last Filed: 03/17/17 12:36> Phys Exam - Physical Examination HEENT: moist MMs, oral pharynx no lesions Neck: no nodes, no JVD, supple, full ROM Respiratory: no wheezing, no rales, no rhonchi, clear to auscultation bilateral Cardiovascular: RRR, no significant murmur, no rub Gastrointestinal: soft, non-tender, no distention, positive bowel sounds Musculoskeletal: no edema, pulses present strenght 5/5 in arms and legs bilaterally when pushing against. Neurological: non-focal, normal sensation, moves all 4 limbs CN 2-12 grossly intact this morning. No facial droop noted. No numbness reported. Gait sitll abnormal. Very weak standing Lymphatic: no nodes Psychiatric: normal affect, A&O x 3 Skin: no rash, normal turgor, cap refill <2 seconds <Eamon Cervantes - Last Filed: 03/17/17 08:31> Dx/Plan (1) Abnormality of gait and mobility Code(s): R26.9 - UNSPECIFIED ABNORMALITIES OF GAIT AND MOBILITY Status: Acute Plan: Yesterday patient had soldier like gait. Very uncoordinated. Was very weak. Could barely stand on his own with walker. Yesterday had some tongue protrusion. Since then CN2-12 grossly intact this morning. Still very weak with gait and mobility. MRI Head yesterday showed no acute infarct -Neurology Consulted- Dr. Beckett- ordered MRI C-spine and L-spine. -Read MRI as negative. Rehab Screening pending as pt will likely need intensive therapy outpt for weakness. PT recommends rehab pending dishcarge. PT/OT to continue to treat. (2) Hypertensive urgency Code(s): I10 - ESSENTIAL (PRIMARY) HYPERTENSION Status: Acute Plan: SBP still elevated in 170 to 200 overnight and this morning. DBP stable. Increased Carvedilol at this time. -May have some underlying renal dz causing resistant htn. Cr stable though at this time. -Renin and Aldosterone activity pending. -Elevated BP may be related to age and anatomy of vessels. Has high difference b /w SBP and DBP. -Will continue to monitor BP and adjust carvedilol more. Will also switch his hydralazine to TID. -Denies any sx's of htn emergency at this time. (3) Hematuria Code(s): R31.9 - HEMATURIA, UNSPECIFIED Status: Acute Plan: -Bloody urine starting a few days ago. Had a few clots pass. Still able to pee at this time. Urine clearing up at this time. -Urology Consulted- Dr. Blake. -Got serial urines x3. Improved over the course. Plan is to f/u outpt with possible cystoscopy in Mar. -Will follow recommendations (4) HLD (hyperlipidemia) Code(s): E78.5 - HYPERLIPIDEMIA, UNSPECIFIED Status: Chronic Plan: continue home meds (5) S/P CABG (coronary artery bypass graft) Code(s): Z95.1 - PRESENCE OF AORTOCORONARY BYPASS GRAFT Status: Chronic Plan: -Aspirin being held due to hematuria. -Continuing all other home medications at this time. <Eamon Cervantes - Last Filed: 03/17/17 08:31> Attending Addendum - Attending Addendum I personally evaluated the patient and discussed the management with Dr. Cervantes. I agree with the History, Examination, Assessment and Plan documented above with any addition or exceptions noted below. Patient continues to have extremely elevated blood pressures, labile, despite multiple medication adjustments in his regimen. Fortunately, he has no complaints of chest pain, shortness of breath, or headache. He is requiring additional antihypertensive therapy and increases in previous medications. Further, he was found yesterday to have abnormal neurological exam, particularly regarding his gait, which has only been present over the last 2-3 days per . Neurology consulted who recommends MRI of lumbar and cervical spine. I would consider possible dorsal column lesion in spine that might account for his dramatic loss of propioreception. Awaiting reports of those scans. Patient is unsafe at home as he can take no more than a few steps without significant weakness. Await scan report and neurology recs. Patient is not currently stable for discharge at this time. <Jasen Bell - Last Filed: 03/17/17 12:36>
[2017-03-17] MEDS ORDERED: hydrALAZINE 20 MG/ML VIAL SLOW IVP PRN ×2 (11:15→13:12)
[2017-03-17] MEDS ORDERED: Sodium Chloride 0.9% 1,000 ML IV SCH (13:30)
--- NOTE | 2017-03-17 15:14 | MRI ---
MRI CERVICAL SPINE: Date: 03/17/17 HISTORY: Bilateral lower extremity weakness. TECHNIQUE: Multiplanar, multisequence noncontrast enhanced MRI of cervical spine obtained. FINDINGS: MRI images are of minimal diagnostic quality due to patient motion. There is so much motion that ther e is significant degradation of MRI imaging findings. The spinal cord is grossly unremarkable. There is disc desiccation with broad based posterior osteoph yte minimally but not significantly compressing the thecal sac. The neural foramen are in the cervica l spine and are difficult to assess due to patient motion. No evidence of compression fractures of th e vertebra seen. IMPRESSION: Limited exam due to patient motion. There is some disc space height loss and a broad based disc osteo phyte complex at C5-6. The rest of the cervical spine is difficult to assess due to patient motion. POS: [facility]
--- NOTE | 2017-03-17 15:21 | MRI ---
MRI LUMBAR SPINE: Date: 03/17/17 HISTORY: Bilateral lower extremity. TECHNIQUE: Multiplanar, multisequence noncontrast enhanced MRI images of lumbar spine obtained. RADIOGRAPHIC FINDINGS: For the purposes of this dictation, the last freely mobile vertebral body will be considered to be th e L5 vertebral body. All other vertebral bodies are numbered according to this. T12-L1: Unremarkable. L1-2: There is some mild bilateral facet and ligamentum flavum hypertrophy. The central canal and neural fo ramen are patent. L2-3: Disc desiccation is seen. There is a broad based central disc osteophyte complex compressing the thec al sac. Bilateral facet and ligamentum flavum hypertrophy is seen. This results in a moderate degree of central and lateral recess stenosis. Mild to moderate left and mild right-sided neural foraminal n arrowing is seen. L3-4: Disc desiccation is seen. There is a broad based disc bulge with bilateral facet and ligamentum flavu m hypertrophy. This results in moderate to severe central L3-4 central and lateral recess stenosis. T here is moderate bilateral L3-4 neural foraminal narrowing seen. \ L4-5: Disc desiccation is seen. There is a broad based disc osteophyte complex centrally compressing the th ecal sac. Bilateral facet and ligamentum flavum hypertrophy is seen. This results in critical central and L4-5 lateral recess stenosis. Moderate bilateral neural foraminal narrowing is seen. L5-S1: Disc desiccation is seen. There is a broad based disc bulge with bilateral facet hypertrophy. This re sults in a moderate degree of central and lateral recess stenosis. There is moderate to severe bilate ral neural foraminal narrowing seen. 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 Bilateral L4-5 and L5-S1 ne ural foraminal narrowing also seen. There is also some moderate L3-4 central and lateral recess steno sis seen. POS: [facility]
[2017-03-17] MEDS: Atorvastatin Calcium 40 MG TAB PO SCH (19:58)
[2017-03-18] MEDS: Melatonin 3 MG TAB PO PRN (01:46)
[2017-03-18] MEDS: hydrALAZINE 20 MG/ML VIAL SLOW IVP PRN ×2 (01:46→05:24)
[2017-03-18] MEDS ORDERED: Haloperidol 1 MG TAB PO SCH (04:00)
[2017-03-18 05:45] LABS: #Eosinphils 0.2 thou/uL (0.0-0.7); #Lymphocytes 1.1 thou/uL (1.20-3.40); #Monocytes 1.1 thou/uL (0.11-0.59); %Basophils 0.2 % (0.0-1.0); %Lymphocytes 9.3 % (21.0-51.0); %Monocytes 9.5 % (0.0-10.0); Hematocrit 36.2 % (42.0-52.0); Mean Platelet Volume 7.9 fL (7.4-10.4); Red Blood Cell (RBC) Count 4.28 mill/uL (4.70-6.10); White Blood Cell (WBC) Count 11.4 thou/uL (4.8-10.8)
[2017-03-18 06:34] LABS: Anion Gap 13 mmol/L (10-20); BUN (Urea Nitrogen) 12 mg/dL (8.4-25.7); Calc. Creatinine Clearance 71 mL/min (70-130); Calcium 8.7 mg/dL (7.8-10.44); Carbon Dioxide 24 mmol/L (23-31); Chloride 91 mmol/L (98-107); Estimated GFR-MDRD Greater than 90
--- NOTE | 2017-03-18 08:23 | PDOC.FM ---
- Subjective Subjective: Pt doing okay this morning. Is alert and oriented x2. Pt is up in bed and eating. During eating he had a coughing episode. Noted expiratory audible wheezes on exhale. He reports doing fine this morning. Reports still being weak in his legs. Denies any numbness or tingling. Denies any fevers or chills. denies any chest pain or shortness of breath. Denies any acute events overnight - Objective Vital Signs & Weight: Vital Signs (12 hours) Temp Pulse Resp BP BP Pulse Ox 03/18/17 05:24 64 03/18/17 03:57 98.3 F 64 20 207/81 H 94 L 03/18/17 01:46 59 L 194/88 H 03/17/17 22:53 98.3 F 59 L 16 196/77 H 96 I&O: 03/17/17 03/18/17 03/19/17 06:59 06:59 06:59 Intake Total 100 Output Total 200 Balance -100 Result Diagrams: 03/18/17 05:10 03/18/17 05:10 Radiology Reviewed by me: Yes Radiology: MRI C-spine: Limited exam due to patient motion. Some disc space height loss and a broad based disc osteophyte complex at C5-C6. The rest of the cervical spine is difficult to assess due to motion MRI L-spine: Severe L4-5 w/ moderate L5-S1 central and lateral recess stenosis. Bilateral L4-5 and L5-S1 neural foraminal narrowing seen. Some moderate L3-L4 central and lateral recess stenosis. <Eamon Cervantes - Last Filed: 03/18/17 08:21> - Objective Vital Signs & Weight: Vital Signs (12 hours) Temp Pulse Resp BP BP Pulse Ox 03/18/17 11:30 98.2 F 57 L 20 182/71 H 96 03/18/17 07:40 97.5 F L 62 20 191/86 H 93 L 03/18/17 05:24 64 03/18/17 03:57 98.3 F 64 20 207/81 H 94 L 03/18/17 01:46 59 L 194/88 H I&O: 03/17/17 03/18/17 03/19/17 06:59 06:59 06:59 Intake Total 100 Output Total 200 Balance -100 Result Diagrams: 03/18/17 05:10 03/18/17 05:10 <BellJasen Ruth Apryl - Last Filed: 03/18/17 12:13> Phys Exam - Physical Examination HEENT: PERRLA, moist MMs, oral pharynx no lesions Neck: no nodes, no JVD, supple Respiratory: wheezing present (Wheezing seemed heard in upper airway. Not auble in Lung lobes), clear to auscultation bilateral Cardiovascular: RRR, no significant murmur, no rub Gastrointestinal: soft, non-tender, no distention, positive bowel sounds Musculoskeletal: no edema, pulses present Neurological: non-focal, normal sensation Very weak in his legs. Denies any numbness or tingling Lymphatic: no nodes Psychiatric: normal affect, A&O x 3 <Eamon Cervantes - Last Filed: 03/18/17 08:21> Dx/Plan (1) Abnormality of gait and mobility Code(s): R26.9 - UNSPECIFIED ABNORMALITIES OF GAIT AND MOBILITY Status: Acute Plan: Patient has soldier like gait. Very uncoordinated. Was very weak. Could barely stand on his own with walker. Yesterday had some tongue protrusion. Since then CN2-12 grossly intact this morning. Still very weak with gait and mobility. MRI Head yesterday showed no acute infarct -Neurology Consulted- Dr. Beckett- . -Read MRI Head as negative. MRI [id number] due to motion MRI L-spine- Shows severe stenosis and neural foraminal narrowin. Results listed above. Could be reason for weakness. Yet not having any numbness or nerve pain sx's. Will await neurology recs. May consider consulting Neurosurgery Rehab Screening pending as pt will likely need intensive therapy outpt for weakness. PT recommends rehab pending dishcarge. PT/OT to continue to treat. (2) Hypertensive urgency Code(s): I10 - ESSENTIAL (PRIMARY) HYPERTENSION Status: Acute Plan: SBP still elevated in 170 to 200 overnight and this morning. DBP stable. Increased Carvedilol at this time. -May have some underlying renal dz causing resistant htn. Cr stable though at this time. -Renin and Aldosterone activity pending. -Elevated BP may be related to age and anatomy of vessels. Has high difference b /w SBP and DBP. -Will continue to monitor BP. Carvedilol incresed yesterday. Hydralazine switched to TID. Will add a Amlodipine CCB on for now. -Denies any sx's of htn emergency at this time. (3) Hematuria Code(s): R31.9 - HEMATURIA, UNSPECIFIED Status: Acute Plan: -Bloody urine starting a few days ago. Had a few clots pass. Still able to pee at this time. Urine clearing up at this time. -Urology Consulted- Dr. Blake. -Got serial urines x3. Improved over the course. Plan is to f/u outpt with possible cystoscopy in Mar. -Will follow recommendations (4) Hyponatremia Code(s): E87.1 - HYPO-OSMOLALITY AND HYPONATREMIA Status: Acute Plan: Na dropping from 128->124 today on BMP. Was started on spirinolactone for HTN urgency problem above. Will discontinue at this time and start on amlodipine. Could be causing drop. -Will also check volume status. May need some IV fluids if hypovolemic. Cr stable. -My need to stop lasix. -Will await labs and tx accordingly. (5) HLD (hyperlipidemia) Code(s): E78.5 - HYPERLIPIDEMIA, UNSPECIFIED Status: Chronic Plan: continue home meds (6) S/P CABG (coronary artery bypass graft) Code(s): Z95.1 - PRESENCE OF AORTOCORONARY BYPASS GRAFT Status: Chronic Plan: -Aspirin being held due to hematuria. -Continuing all other home medications at this time. - Plan Plan: Possibly Aspirating, Wheezy -Pt eating this morning and witnessed him coughing and seemed to have a hard time swallowing -Will get CXR and consult speech for formal assessment. -May need to add duoneb. -O2 sats stable. <Eamon Cervantes - Last Filed: 03/18/17 08:21> Attending Addendum - Attending Addendum I personally evaluated the patient and discussed the management with Dr. Cervantes. I agree with the History, Examination, Assessment and Plan documented above with any addition or exceptions noted below. Patient with multiple active issues at this time. In regards to HTN, he continues to be highly elevated despite changes to medications. Will increase medications and adding Norvasc. In regards to lower extremity weakness, MRI lumbar spine shows some critical stenosis which could be causing symptoms. Will consult [facility] for further recs. He is now hyponatremic, unknown etiology though possibly due to medication effects. Will hold Lasix and Aldactone, and check serum studies. He also may have had some issues with aspiration with eating and therefore will consult speech therapy. Awaiting recommendations from rehab screen though not ready for discharge at this time. <Jasen Bell - Last Filed: 03/18/17 12:13>
[2017-03-18] MEDS: Carvedilol 6.25 MG TAB PO SCH (08:35)
[2017-03-18] MEDS: Lisinopril 20 MG TAB PO SCH (08:36)
[2017-03-18] MEDS: hydrALAZINE 25 MG TAB PO SCH ×6 (08:36→19:59)
[2017-03-18] MEDS: Doxazosin Mesylate 4 MG TAB PO SCH (08:37)
[2017-03-18] MEDS: Enoxaparin Sodium 40 MG/0.4 ML SYRINGE SC SCH (08:38)
[2017-03-18] MEDS: Famotidine 20 MG TAB PO SCH ×2 (08:38→19:58)
[2017-03-18] MEDS: Furosemide 20 MG TAB PO SCH ×2 (08:39→14:09)
[2017-03-18] MEDS: Spironolactone 25 MG TAB PO SCH (08:41)
[2017-03-18] MEDS ORDERED: Amlodipine 5 MG TAB PO SCH (09:00)
[2017-03-18 09:03] LABS: Osmolality, Urine 643 mOsm/kg (300-900)
[2017-03-18 09:18] LABS: Sodium, Urine 110 mmol/L (Not Available)
--- NOTE | 2017-03-18 09:48 | RAD ---
CHEST 2 VIEWS: Date: 03/18/17 HISTORY: Wheezing, aspiration. COMPARISON: Chest 1 view dated 03/14/17. FINDINGS: There is a lingular and left lower lobe air space opacity and mild blunting of left lateral costophre nidia sulcus. Right lung is relatively clear. No pneumothorax. There is a faint nodularity in the right middle lobe. IMPRESSION: 1. Mild blunting left lateral costophrenic sulcus suggesting small effusion. 2. Faint nodular opacities right middle lobe and left lower lobe and lingula, may represent infectio n. POS: [facility]
[2017-03-18] MEDS ORDERED: Gadobenate Dimeglumine 529 MG/1 ML (20ML VIAL) ONE (13:39)
--- NOTE | 2017-03-18 14:46 | CON ---
DATE OF CONSULTATION: 03/18/2017 HISTORY OF PRESENT ILLNESS: The patient is an 87-year-old male with a past medical history of coronary artery disease, hypertension, hyperlipidemia, prior CABG x2, prior stents x2, who was admitted on 03/15/2017 for lower extremity weakness and elevated blood pressure. The patient reports that on Tuesday, he went to get out of his chair that evening when he noticed acute onset of bilateral leg weakness and difficulty walking. He denies any trauma, and reports that he just sat down on the ground because he could no longer walk. At this time, he reports he began having some dysesthesias, which he describes as pins and needle sensations from the knees down to his feet. During his stay, he has had some mild low back discomfort, which began yesterday; pt denies history of back pain or prior surgeries. During his admission, the patient was evaluated by Neurology with an unremarkable brain MRI. Dr. Beckett recommended further spinal imaging for evaluation of this new onset weakness with the cervical and lumbar MRI. Cervical MRI was notable for degenerative changes most pronounced at C5-C6; however, there was overall poor quality secondary to a motion artifact. The lumbar MRI was notable for degenerative changes and significant central canal and foraminal stenosis at L4-L5. During his admission, the patient was also evaluated by Urology for hematuria. The patient denied any incontinence or difficulty emptying his bladder. Aspirin has been held since Tuesday. Hematuria appears to be clearing per urology. There appears to be some uncertainty about the etiology of his hematuria, but they will continue to follow and evaluate on an outpatient basis. PAST MEDICAL HISTORY: Coronary artery disease status post CABG and cardiac stent placement 4 years ago, hypertension, and hyperlipidemia. PAST SURGICAL HISTORY: CABG, stent placement, hernia repair, aortic valve replacement, and tonsillectomy. ALLERGIES: Patient has no known drug allergies. FAMILY HISTORY: Noncontributory. SOCIAL HISTORY: The patient lives at home. He does not smoke, drink or use any drugs. REVIEW OF SYSTEMS: Per HPI. PHYSICAL EXAMINATION: CONSTITUTIONAL: No acute distress. The patient is sitting comfortably in the bed. Well-developed and well-nourished. EYES: PERRLA. Extraocular movements are intact. ENT: Oral mucosa is pink, intact, and moist. He has a normal voice. NECK: Supple, nontender to palpation. Free active range of motion. No meningismus or nuchal rigidity. CARDIOVASCULAR: Regular rate and rhythm. RESPIRATORY: Symmetric chest expansion. No evidence of dyspnea. MUSCULOSKELETAL: He has good muscle tone in the bilateral upper and lower extremities. No reflex asymmetry or focal motor weakness is appreciated when the patient was examined in the bed. NEUROLOGIC: He is A and O x4. There is no focal weakness appreciated during my exam with the patient in the bed. I did not attempt to ambulate the patient. ASSESSMENT: Lower extremity weakness, gait instability, lumbar stenosis. PLAN: Lumbar MRI revealed significant central canal stenosis at L4-L5. This may be etiology for his worsening lower extremity weakness and sensation changes ; however, his presentation is rather atypical. His cervical MRI is rather poor quality secondary to motion infarct. We will plan to get repeat imaging of the cervical and also a thoracic imaging imaging with and without contrast. I have discussed this plan with Dr. Morris, who is in agreement. Please reach out to Neurosurgery Service for additional questions or concerns. BETTINA
[2017-03-18] MEDS ORDERED: traMADol HCl 50 MG TAB PO PRN (15:40)
--- NOTE | 2017-03-18 16:21 | MRI ---
HISTORY: Leg weakness. 87-year-old male. Pre and postcontrast enhanced MRI images thoracic spine. Multiplanar and multisequence pre and postcontrast enhanced MRI images of the thoracic spine obtained . MRI images demonstrate the spinal cord to be unremarkable with no evidence of cord masses or lesions. No evidence of signal abnormality is seen within the thoracic cord. Some of the upper thoracic and l ower cervical region is difficult to evaluate due to patient motion. No abnormal areas of contrast en hancement seen in the cord. No evidence of extrinsic thecal sac compression is seen. No obvious evide nce of epidural abscess seen. No evidence of discitis or osteomyelitis seen in the thoracic spine. th e neural foramen are patent. IMPRESSION: Unremarkable pre and postcontrast enhanced MRI images thoracic spine. POS: [facility]
--- NOTE | 2017-03-18 16:47 | MRI ---
MRI CERVICAL SPINE WITH AND WITHOUT CONTRAST: 03/18/17 HISTORY: 87-year-old male with lower extremity weakness. TECHNIQUE: Multisequence MRI in sagittal and axial planes, pre and post IV injection of 16 mL of Multihance gado linium based contrast agent. FINDINGS: Cervical spinal cord is normal in size and signal. No syrinx. Axial images are somewhat degraded by p atient motion. No syringohydromyelia. No abnormal enhancement or mass in the intramedullary, extramed ullary-intradural, extradural, or perivertebral spaces. Bone marrow signal is normal, with no abnorma l enhancing osseous lesions. No Chiari I malformation. C1-2: No high grade central stenosis. C2-3: No significant central stenosis. Mild to moderate right neural foraminal stenosis. No left neur al foraminal stenosis. Mild to moderate right degenerative facet changes. Mild left degenerative face t changes. Disc space maintained. C3-4: Disc space maintained. No significant central or neural foraminal stenosis. Moderate right dege nerative facet changes. Mild to moderate left degenerative facet changes. C4-5: Ligamentum flavum thickening causes moderate central spinal canal stenosis. Bilateral small to moderate sized uncinate process osteophytes. Bilateral moderate neural foraminal stenosis. Moderate b ilateral degenerative facet changes. Grade I anterolisthesis of C4 on C5 due to the degenerative face t disease. C5-6: Degenerative retrolisthesis of C5 on C6. Severe disc space narrowing. Diffuse disc bulge. Moder ate central spinal canal stenosis. Severe bilateral neural foraminal stenosis. Bilateral mild to mode rate degenerative facet disease. C6-7: Disc space maintained. Moderate bilateral degenerative facet disease causing slight grade I ant erolisthesis of C6 on C7. No central stenosis. Mild to moderate left neural foraminal stenosis. Mild right neural foraminal stenosis. C7-T1: No central stenosis. Moderate bilateral degenerative facet changes. Mild right neural foramina l stenosis. Mild to moderate left neural foraminal stenosis. IMPRESSION: 1. Cervical spondylosis with multilevel facet osteoarthrosis. 2. Degenerative disc disease at C5-6. 3. Moderate central spinal canal stenosis at C4-5 and C5-6. 4. High grade bilateral neural foraminal stenosis at some levels. 5. No andrae cord compression at any level. POS: [facility]
[2017-03-18] MEDS: Sodium Chloride 0.9% 1,000 ML IV SCH (17:52)
[2017-03-18] MEDS: Carvedilol 25 MG TAB PO SCH (17:53)
[2017-03-18] MEDS: Atorvastatin Calcium 40 MG TAB PO SCH (19:58)
[2017-03-18] MEDS: cloNIDine 0.1 MG TAB PO SCH (19:58)
[2017-03-19] MEDS: Melatonin 3 MG TAB PO PRN (00:25)
[2017-03-19] MEDS: hydrALAZINE 20 MG/ML VIAL SLOW IVP PRN (00:25)
[2017-03-19 06:53] LABS: #Eosinphils 0.1 thou/uL (0.0-0.7); #Monocytes 1.3 thou/uL (0.11-0.59); #Neutrophils 8.5 thou/uL (1.40-6.50); %Basophils 0.2 % (0.0-1.0); %Eosinophils 1.2 % (0.0-10.0); %Lymphocytes 9.2 % (21.0-51.0); %Monocytes 12.1 % (0.0-10.0); Hematocrit 35.2 % (42.0-52.0); Mean Platelet Volume 7.7 fL (7.4-10.4)
[2017-03-19 07:07] LABS: Anion Gap 10 mmol/L (10-20); BUN (Urea Nitrogen) 11 mg/dL (8.4-25.7); Calc. Creatinine Clearance 77 mL/min (70-130); Calcium 8.1 mg/dL (7.8-10.44); Carbon Dioxide 26 mmol/L (23-31); Chloride 87 mmol/L (98-107); Estimated GFR-MDRD Greater than 90
--- NOTE | 2017-03-19 07:13 | PDOC.FM ---
- Subjective Subjective: Pt doing well this morning. Denies any acute events overnight. Still reports being weak in his legs. States he is just uncomfortable from just being in the bed. Says the bed is not very comfortable. Denies any fever chills. - Objective Vital Signs & Weight: Vital Signs (12 hours) Temp Pulse Resp BP Pulse Ox 03/19/17 03:37 97.7 F 65 20 171/74 H 94 L 03/19/17 00:00 97.8 F 66 20 193/85 H 95 03/18/17 20:00 97.3 F L 66 18 03/18/17 19:48 97.3 F L 66 18 200/84 H 96 I&O: 03/18/17 03/19/17 03/20/17 06:59 06:59 06:59 Intake Total 100 2090 Output Total 200 575 Balance -100 1515 Result Diagrams: 03/19/17 06:45 03/19/17 06:45 Radiology Reviewed by me: Yes Radiology: 03/18 MRI C-spine: Cervical spondylosis w/ multilevel facet osteoarthritis. Degenerative disc disease at C5-C6. Moderate central Spinal canal stenosis at C4 -5, and C5-6. High grade bilateral neural foraminal stenosis at some levels. No nadrae cord compression at any level 03/18 MRI T-spine: Unremarkable pre and post contrast enhanced MRI images of thoracic spine <Eamon Cervantes - Last Filed: 03/19/17 07:37> - Objective Vital Signs & Weight: Vital Signs (12 hours) Temp Pulse Resp BP BP Pulse Ox 03/19/17 09:57 60 194/88 H 03/19/17 09:56 194/88 H 03/19/17 09:20 60 24 H 94 L 03/19/17 08:10 98.2 F 65 18 03/19/17 07:30 98.2 F 65 18 183/85 H 95 03/19/17 03:37 97.7 F 65 20 171/74 H 94 L 03/19/17 00:00 97.8 F 66 20 193/85 H 95 I&O: 03/18/17 03/19/17 03/20/17 06:59 06:59 06:59 Intake Total 100 2090 Output Total 200 575 Balance -100 1515 Result Diagrams: 03/19/17 06:45 03/19/17 06:45 <Jasen Bell Apryl - Last Filed: 03/19/17 10:40> Phys Exam - Physical Examination HEENT: moist MMs, oral pharynx no lesions Neck: no nodes, supple, full ROM Respiratory: clear to auscultation bilateral Upper airway wheezing noted. Not great air movement Cardiovascular: RRR, no significant murmur, no rub Gastrointestinal: soft, non-tender, no distention, positive bowel sounds Musculoskeletal: no edema, pulses present Neurological: non-focal, normal sensation, moves all 4 limbs Psychiatric: normal affect Deviation from normal: Had a hard time hearing as did not have hearing aids in Skin: no rash <Eamon Cervantes - Last Filed: 03/19/17 07:37> Dx/Plan (1) Abnormality of gait and mobility Code(s): R26.9 - UNSPECIFIED ABNORMALITIES OF GAIT AND MOBILITY Status: Acute Plan: Patient has soldier like gait. Very uncoordinated. Was very weak. Could barely stand on his own with walker. Yesterday had some tongue protrusion. Since then CN2-12 grossly intact this morning. Still very weak with gait and mobility. MRI Head yesterday showed no acute infarct -Neurology Consulted- Dr. Beckett- . -Read MRI Head as negative. MRI [id number] due to motion 03/18 C-spine- Shows extensive stenosis. Read above in note 03/18 T-spine- No real abnormality. Read above in note MRI L-spine- Shows severe stenosis and neural foraminal narrowin. Results listed above. Could be reason for weakness. Yet not having any numbness or nerve pain sx's. Neurosurgery Consulted- Addison YUSUF, will await recommendations. They ordered repeat C-spine and T-spine. W Rehab Screening processed. Patient approved for rehab pending discharge PT recommends rehab pending dishcarge. PT/OT to continue to treat. (2) Hypertensive urgency Code(s): I10 - ESSENTIAL (PRIMARY) HYPERTENSION Status: Acute Plan: SBP still elevated in 170 to 200 overnight and this morning. DBP stable. Increased Carvedilol again overnight. Added clonidine, may need to increase dose. -May have some underlying renal dz causing resistant htn. Cr stable though at this time. -Renin and Aldosterone activity pending. -Elevated BP may be related to age and anatomy of vessels. Has high difference b /w SBP and DBP. -Will continue to monitor BP. Hydralazine switched to TID. Will add a Amlodipine CCB, will likely need to increase dose -Denies any sx's of htn emergency at this time. (3) Hematuria Code(s): R31.9 - HEMATURIA, UNSPECIFIED Status: Acute Plan: -Bloody urine starting a few days ago. Had a few clots pass. Still able to pee at this time. Urine clearing up at this time. -Urology Consulted- Dr. Blake. -Got serial urines x3. Improved over the course. Plan is to f/u outpt with possible cystoscopy in Mar. -Will follow recommendations (4) Hyponatremia Code(s): E87.1 - HYPO-OSMOLALITY AND HYPONATREMIA Status: Acute Plan: Na dropping from 128->124-->119 today on BMP. Possibly SIADH. still awaiting renin and aldosterone activity Was started on spirinolactone for HTN urgency problem above. It was discontinued yesterday and started on amlodipine. -Serum Osm low. Likely related to medications. Stopped furosemide and spirinolactone. Started NS@75mls/l yesterday. -Na even lower today. May consider hypertonic saline for a short time or increase fluids. (5) HLD (hyperlipidemia) Code(s): E78.5 - HYPERLIPIDEMIA, UNSPECIFIED Status: Chronic Plan: continue home meds (6) S/P CABG (coronary artery bypass graft) Code(s): Z95.1 - PRESENCE OF AORTOCORONARY BYPASS GRAFT Status: Chronic Plan: -Aspirin being held due to hematuria. -Continuing all other home medications at this time. <Eamon Cervantes - Last Filed: 03/19/17 07:37> Attending Addendum - Attending Addendum I personally evaluated the patient and discussed the management with Dr. Cervantes. I agree with the History, Examination, Assessment and Plan documented above with any addition or exceptions noted below. Patient continues to show minimal signs of improvement. From BP standpoint, it continues to be high despite addition of Clonidine. Nephro has been consulted to assist with case. His renin/aldosterone levels are pending. We will order a renal ultrasound with dopplers to rule out renal artery stenosis. He continues to experience weakness in lower extremities, but no surgery at this time per NSGY. They have recommended steroids which we will hold until his blood pressure is under control. No evidence for aspiration pneumonia, continue to work with speech therapy. 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 Has been accepted for rehab but is not currently medically ready to be discharged. <Jasen Bell - Last Filed: 03/19/17 10:40>
[2017-03-19] MEDS ORDERED: Amlodipine 10 MG TAB PO SCH (09:00)
[2017-03-19] MEDS: Famotidine 20 MG TAB PO SCH ×2 (09:56→20:52)
[2017-03-19] MEDS: cloNIDine 0.1 MG TAB PO SCH ×2 (09:56→21:00)
[2017-03-19] MEDS: Docusate 100 MG CAP PO SCH ×2 (09:56→20:52)
[2017-03-19] MEDS: Carvedilol 25 MG TAB PO SCH ×2 (09:56→17:49)
[2017-03-19] MEDS: Doxazosin Mesylate 4 MG TAB PO SCH (09:56)
[2017-03-19] MEDS: Lisinopril 20 MG TAB PO SCH (09:57)
[2017-03-19] MEDS: hydrALAZINE 25 MG TAB PO SCH ×5 (09:57→21:00)
[2017-03-19] MEDS: NIFEdipine XL 60 MG TAB PO SCH (09:57)
[2017-03-19] MEDS: Enoxaparin Sodium 40 MG/0.4 ML SYRINGE SC SCH (10:11)
[2017-03-19] MEDS: Sodium Chloride 0.9% 1,000 ML IV SCH (10:17)
[2017-03-19] MEDS ORDERED: methylPREDNISolone 4 mg Tablet PO SCH (12:00)
--- NOTE | 2017-03-19 17:53 | ULT ---
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 Exam was somewhat limited by body habitus and patient's inability to hold breath. There is no evidence for significant abnormal increased velocities in either the right or left renal arteries. The left resistive index is elevated at 0.8. The right resistive index is 0.7. the right ki dney measures 11.6 d 5.9 x 5.8 cm. The left kidney measures 13.0 x 5.8 x 5.8 cm. There is no renal hy dronephrosis or perinephric process. The bladder appears unremarkable. IMPRESSION: Unremarkable bilateral renal ultrasound without hydronephrosis or perinephric process. No significant abnormal focal increased velocities within the right or left renal arteries; however, left renal art millie resistive index is elevated at 0.8. If there is persistent clinical concern for renal artery sten osis, followup CT angiogram is recommended for further assessment. POS: [facility]
[2017-03-19] MEDS ORDERED: Tolvaptan 15 MG TAB PO SCH (19:30)
[2017-03-19] MEDS ORDERED: Sodium Chloride 1 GM TAB PO SCH (20:00)
[2017-03-19 20:39] LABS: Anion Gap 12 mmol/L (10-20); BUN (Urea Nitrogen) 16 mg/dL (8.4-25.7); Calc. Creatinine Clearance 53 mL/min (70-130); Calcium 7.9 mg/dL (7.8-10.44); Carbon Dioxide 26 mmol/L (23-31); Chloride 84 mmol/L (98-107); Estimated GFR-MDRD 65
[2017-03-19] MEDS: Atorvastatin Calcium 40 MG TAB PO SCH (20:52)
--- NOTE | 2017-03-20 00:33 | CON ---
DATE OF CONSULTATION: 03/19/2017 CONSULTING PHYSICIAN: Jasen Bell M.D. REASON FOR CONSULTATION: Hyponatremia and hypertension. HISTORY OF PRESENT ILLNESS: This is an 87-year-old male with history of coronary artery disease, hyp ertension, hyperlipidemia, who came to the hospital with high blood pressure and weakness and is bein g admitted. The patient was admitted for a few days now. Blood pressure remains high. Nephrology w as consulted for hypertension. The patient was given Procardia this morning and blood pressure seems to be better. The patient was also hyponatremic. He came to the hospital with sodium of [address] eadily declining. The patient was started on Lasix initially then IV fluids, but sodium continues to drop. The patient is not having any nausea, vomiting, not volume depleted. No signs of any edema, no shortness breath reported. No fever or chills. No skin rash. PAST MEDICAL HISTORY: Positive for coronary artery disease, hypertension, hyperlipidemia. PAST SURGICAL HISTORY: CABG, stent placement, hernia repair, aortic valve replacement, tonsillectomy . HOME MEDICATIONS: Atorvastatin, omeprazole, lisinopril, doxazosin, aspirin, furosemide, carvedilol, hydralazine. ALLERGIES: No known drug allergies. SOCIAL HISTORY: No smoking, alcohol, or illicit drug abuse. FAMILY HISTORY: No history of any kidney disease. REVIEW OF SYSTEMS: The following complete review of systems was negative, unless otherwise mentioned in the HPI or below: Constitutional: Weight loss or gain, ability to conduct usual activities. Skin: Rash, itching. Eyes: Double vision, pain. ENT/Mouth: Nose bleeding, neck stiffness, pain, tenderness. Cardiovascular: Palpitations, dyspnea on exertion, orthopnea. Respiratory: Shortness of breath, wheezing, cough, hemoptysis, fever or night sweats. Gastrointestinal: Poor appetite, abdominal pain, heartburn, nausea, vomiting, constipation, or diarr hea. Genitourinary: Urgency, frequency, dysuria, nocturia. Musculoskeletal: Pain, swelling. Neurologic/Psychiatric: Anxiety, depression. Allergy/Immunologic: Skin rash, bleeding tendency. PHYSICAL EXAMINATION: GENERAL: This is a well-built male, in no apparent distress. VITAL SIGNS: Temperature 97.5, pulse 62, respiratory rate 20, blood pressure 103/53, was 139/62 this morning. HEENT: Atraumatic, normocephalic. Oral mucosa is moist. NECK: Supple, no masses. CARDIOVASCULAR: S1, S2 heard. Rate and rhythm regular. RESPIRATORY: Clear. GASTROINTESTINAL: Abdomen is soft. MUSCULOSKELETAL: No tenderness. No edema. DERMATOLOGIC: No skin rash. NEUROLOGIC: Alert and awake. PSYCHIATRIC: Mood and affect normal. LABORATORY AND X-RAY FINDINGS: Sodium is 119, creatinine is 0.7. ASSESSMENT AND PLAN: 1. Hyponatremia seems to be normovolemic. Urine studies suggest syndrome of inappropriate antidiure tic hormone secretion, even though not very reliable given the recent administration of Lasix. Plan is to start on tolvaptan, but unfortunately the hospital cannot arrange any tolvaptan. We will start him on low sodium tablets, even though blood pressure is an issue. We will start sodium tablet 3 gr ams p.o. t.i.d. with fluid restriction as tolerated. We will recommend fluid restriction of 1.5 lite rs. 2. Hypochloremia. 3. Hypertension. Blood pressure seems to be better. We will continue current regimen. Close monit oring of blood pressure. If blood pressure drops, may have to stop some other medications. Continue on Procardia and stop amlodipine. 4. Edema, controlled. 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 Will recommend rule out causes includi ng hypothyroidism and adrenal issues. Plan is to monitor sodium closely and blood pressure closely. We will follow. Thank you for the consultation.
[2017-03-20 05:15] LABS: Anion Gap 10 mmol/L (10-20); BUN (Urea Nitrogen) 22 mg/dL (8.4-25.7); Calc. Creatinine Clearance 38 mL/min (70-130); Calcium 7.9 mg/dL (7.8-10.44); Carbon Dioxide 27 mmol/L (23-31); Chloride 86 mmol/L (98-107); Estimated GFR-MDRD 44
--- NOTE | 2017-03-20 07:31 | PDOC.FM ---
- Subjective Subjective: Pt reports having numbness in his fingertips this morning. Says he has a hard time gripping because of it. Reports also feeling like he isn't fully emptying his bladder when he pees. Denies any fevers and chills. Denies any chest pain. Reports being a little SOB. No acute events overnight. Nurse reports having decreased urinary output. reports not having bowel movement in 6 days. - Objective Vital Signs & Weight: Vital Signs (12 hours) Temp Pulse Resp BP BP Pulse Ox 03/20/17 04:16 97.7 F 58 L 20 118/59 L 93 L 03/19/17 22:48 97.9 F 50 L 16 96/53 L 94 L 03/19/17 21:00 50 L 98/54 L 03/19/17 20:00 97.5 F L 50 L 20 Weight Weight 80.286 kg I&O: 03/19/17 03/20/17 03/21/17 06:59 06:59 06:59 Intake Total 2090 600 Output Total 575 Balance 1515 600 Result Diagrams: 03/19/17 06:45 03/20/17 04:21 Radiology: Renal U/S: Unremarkable bilat renal u/s w/o hydronephrosis or perinephric process. No significant abnormal focal increased velocities w/n the right or left renal arteries, however, left renal artery resistive index is elevated at .8. If there is persistent clinical concern for renal artery stenosis. F/u CT angiogram is recommended. <Eamon Cervantes - Last Filed: 03/20/17 07:29> - Objective Vital Signs & Weight: Vital Signs (12 hours) Temp Pulse Resp BP Pulse Ox 03/20/17 10:42 66 03/20/17 08:00 97.9 F 66 18 158/70 H 97 03/20/17 04:16 97.7 F 58 L 20 118/59 L 93 L Weight Weight 80.286 kg I&O: 03/19/17 03/20/17 03/21/17 06:59 06:59 06:59 Intake Total 2090 600 Output Total 575 Balance 1515 600 Result Diagrams: 03/19/17 06:45 03/20/17 04:21 <Jasen Bell - Last Filed: 03/20/17 11:36> Phys Exam - Physical Examination HEENT: moist MMs, oral pharynx no lesions Neck: no nodes, no JVD, supple, full ROM Respiratory: wheezing present, clear to auscultation bilateral Upper airway wheezing Cardiovascular: RRR, no significant murmur, no rub Gastrointestinal: soft, non-tender, no distention, positive bowel sounds Musculoskeletal: no edema, pulses present Numbness reported in fingertips. Legs give out when he gets up still. Very weak. Lymphatic: no nodes Psychiatric: normal affect Skin: no rash, normal turgor <Eamon Cervantes - Last Filed: 03/20/17 07:29> Dx/Plan (1) Abnormality of gait and mobility Code(s): R26.9 - UNSPECIFIED ABNORMALITIES OF GAIT AND MOBILITY Status: Acute Plan: Patient has soldier like gait. Very uncoordinated. Was very weak. Could barely stand on his own with walker. Yesterday had some tongue protrusion. Since then CN2-12 grossly intact this morning. Still very weak with gait and mobility. MRI Head yesterday showed no acute infarct -Neurology Consulted- Dr. Beckett- . -Read MRI Head as negative. MRI [id number] due to motion 03/18 C-spine- Shows extensive stenosis. Read above in note 03/18 T-spine- No real abnormality. Read above in note MRI L-spine- Shows severe stenosis and neural foraminal narrowin. Results listed above. Could be reason for weakness. Yet not having any numbness or nerve pain sx's. Neurosurgery Consulted- Addison YUSUF -Recommend Methylprednisone dose pack. Do not want to proceed with surgery at this time. Will give dose carlos when blood pressures have stabilized. Do not want to give with elevated pressures as it can excacerbate. Rehab Screening processed. Patient approved for rehab pending discharge PT recommends rehab pending dishcarge. PT/OT to continue to treat. (2) Hypertensive urgency Code(s): I10 - ESSENTIAL (PRIMARY) HYPERTENSION Status: Acute Plan: SBP still elevated in 170 to 200 overnight and this morning. DBP stable. Increased Carvedilol again overnight. Added clonidine, may need to increase dose. -May have some underlying renal dz causing resistant htn. Cr stable though at this time. -Renin and Aldosterone activity pending. -Nephrology Consulted- Dr. Vasudev -Added nifedipine. -Elevated BP may be related to age and anatomy of vessels. Has high difference b /w SBP and DBP. -Will continue to monitor BP. Hydralazine switched to TID. D/c amlodipine and added nifediipine. BP finally lowered. Maybe a little low. Decreased carvedilol this morning as it could be contributing to hyponatremia -Denies any sx's of htn emergency at this time. (3) Hematuria Code(s): R31.9 - HEMATURIA, UNSPECIFIED Status: Acute Plan: -Bloody urine starting a few days ago. Had a few clots pass. Still able to pee at this time. Urine clearing up at this time. -Urology Consulted- Dr. Blake. -Got serial urines x3. Improved over the course. Plan is to f/u outpt with possible cystoscopy in Mar. -Will follow recommendations -Having decreased urinary output overnight and trouble emptying bladder today. Will get bladder scan. (4) ZAID (acute kidney injury) Code(s): N17.9 - ACUTE KIDNEY FAILURE, UNSPECIFIED Status: Acute Plan: Cr bumped up to 1.52 today. Patient having decreased urinary output. Just been fluid restricted due to hyponatremia. -Also could be due to decreased blood flow as blood pressure dropped overnight due to medication changes. Cut back on some of his meds. 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 -Renal u/s shows decreased flow in L. artery. Recommends CTA of kidneys. May consider getting if Cr or urine output continue to decrease Nephrology consulted-Joshuav -Will await recommendations. (5) Hyponatremia Code(s): E87.1 - HYPO-OSMOLALITY AND HYPONATREMIA Status: Acute Plan: Na dropping from 128->124-->119-->119 today on BMP. Possibly SIADH. still awaiting renin and aldosterone activity Was started on spirinolactone for HTN urgency problem above. It was discontinued yesterday and started on amlodipine. -Serum Osm low. Likely related to medications. Stopped furosemide and spirinolactone. -Nephrology- Vasudev consulted Added salt pills and fluid restricted to 1500 ml a day. 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 (6) HLD (hyperlipidemia) Code(s): E78.5 - HYPERLIPIDEMIA, UNSPECIFIED Status: Chronic Plan: continue home meds (7) S/P CABG (coronary artery bypass graft) Code(s): Z95.1 - PRESENCE OF AORTOCORONARY BYPASS GRAFT Status: Chronic Plan: -Aspirin being held due to hematuria. -Continuing all other home medications at this time. <Eamon Cervantes - Last Filed: 03/20/17 07:29> Attending Addendum - Attending Addendum I personally evaluated the patient and discussed the management with Dr. Cervantes. I agree with the History, Examination, Assessment and Plan documented above with any addition or exceptions noted below. Patient continues to have multiple active issues. In regards to HTN- that is now improved, and we will actually decrease Coreg dose to prevent bradycardia. Continue to monitor. In regards to his hyponatremia, it is critical but stable. Patient asymptomatic. Await further input from Nephro, and continue fluid restriction and checks of sodium. If worsens, will need to consider 3% saline. In regards to his weakness, that has worsened and has ascended to involve his hands. Patient and report inability for him to feed himself, a drastic decline from 1 day ago. We will obtain lumbar puncture today due to concerns of Guillan Chandler Syndrome due to this symmetric and ascending neurological deficit. Neurology on board. If consistent with GBS, will need initiation of GG. <Jasen Bell - Last Filed: 03/20/17 11:36>
[2017-03-20] MEDS ORDERED: methylPREDNISolone 4 mg Tablet PO SCH ×6 (08:00→21:00)
[2017-03-20] MEDS: Famotidine 20 MG TAB PO SCH ×2 (09:14→19:48)
[2017-03-20] MEDS: Docusate 100 MG CAP PO SCH ×2 (09:14→19:47)
[2017-03-20] MEDS: Sodium Chloride 1 GM TAB PO SCH ×3 (09:16→19:49)
[2017-03-20] MEDS: NIFEdipine XL 60 MG TAB PO SCH (10:39)
[2017-03-20] MEDS: hydrALAZINE 25 MG TAB PO SCH ×3 (10:42→23:23)
[2017-03-20] MEDS: Carvedilol 25 MG TAB PO SCH ×2 (10:42→16:26)
[2017-03-20] MEDS: Enoxaparin Sodium 40 MG/0.4 ML SYRINGE SC SCH (10:43)
[2017-03-20] MEDS: Doxazosin Mesylate 4 MG TAB PO SCH (10:43)
[2017-03-20 12:14] LABS: CSF, Glucose 74 mg/dl (40-70)
--- NOTE | 2017-03-20 13:11 | RAD ---
FLUOROSCOPIC GUIDED LUMBAR PUNCTURE: Date: 03/20/17 HISTORY: [place], numbness, tingling. RADIATION DOSIMETRY: 0.8 minutes of fluoroscopy. DAP of 122 mGy*cm^2. TECHNIQUE: Informed consent was obtained from the patient and his . The right L1-2 interlaminar space was lo calized using fluoroscopic guidance. The overlying skin was prepped and draped in the usual sterile m edgar. A 1% lidocaine solution was used to anesthetize the overlying soft tissues. Using a paraspinal approach, the L1-2 interlaminar space was passed and abscess was obtained of the thecal sac in the s ubarachnoid space. A 22 gauge needle was placed. A total of 11 mL of clear cerebrospinal fluid was re moved without difficulty. No complications encountered. IMPRESSION: Successful fluoroscopically guided lumbar puncture. POS: [facility]
[2017-03-20 14:16] LABS: Anion Gap 11 mmol/L (10-20); BUN (Urea Nitrogen) 26 mg/dL (8.4-25.7); Calc. Creatinine Clearance 45 mL/min (70-130); Calcium 7.8 mg/dL (7.8-10.44); Carbon Dioxide 23 mmol/L (23-31); Chloride 88 mmol/L (98-107); Estimated GFR-MDRD 52
[2017-03-20] MEDS: OCTAGAM 10% 80 GM in Admixture Fee 1 EACH IVPB SCH (15:25)
[2017-03-20] MEDS ORDERED: Conivaptan 20 MG in Premix Bag 1 BAG IVPB SCH (15:30)
[2017-03-20] MEDS: methylPREDNISolone 4 mg Tablet PO SCH ×3 (17:40→22:25)
--- NOTE | 2017-03-20 18:19 | OP ---
DATE OF PROCEDURE: 03/20/2017 PREPROCEDURAL DIAGNOSES: 1. Inability to pass Diane catheter. 2. Gross blood per urethra after attempted Diane catheterization. 3. Past history of gross hematuria episodes. 4. History of benign prostatic hypertrophy with obstruction, status post distant TURP, now with evid ent regrowth. 5. Acute neurologic syndrome with bilateral lower extremity weakness. POSTPROCEDURAL DIAGNOSES 1. Inability to pass Diane catheter. 2. Gross blood per urethra after attempted Diane catheterization. 3. Past history of gross hematuria episodes. 4. History of benign prostatic hypertrophy with obstruction, status post distant TURP, now with evid ent regrowth. 5. Acute neurologic syndrome with bilateral lower extremity weakness. 6. Urethral trauma in mid bulbar urethral with small laceration noted. 7. Prostate level trauma on friable prostate regrowth. PROCEDURES PERFORMED: 1. Cystourethroscopy, 30066. 2. Complicated Diane placement over Glidewire, [id number]. SURGEON: Nathaniel Hernandez M.D. BRIEF HISTORY AND INDICATION FOR PROCEDURE: Mr. Jose Mascorro is a pleasant 87-year-old white male initially a consult of Dr. Rene Blake, who saw the patient for gross hematuria about a week ago immediately after his hospital admission, he had no significant findings on initial evaluation and hi s hematuria resolved, plan was for outpatient assessment. The patient developed acute urinary retent ion over the last 48 hours with rising serum creatinine and blood urea nitrogen, was evaluated by Dr. Montana who requested a Diane catheter to be placed. During the course of attempted Diane cathet er placement, the patient developed gross per urethral bleeding, I was consulted to evaluate and asse ssed the patient with regard to that. TECHNICAL PROCEDURE: Informed written consent was obtained from the patient's for the patient. The patient underwent sterile prep and drape in the usual fashion in his hospital bed. The patient' s urethra was noted to have a small amount of gross blood per urethra, which was not continuously steffany wing at the time of initial evaluation. A full physical examination when the patient was performed i ncluding digital rectal examination, which demonstrates induration of the patient's prostate and regr owth consistent with a previous TURP with regrowth. Cause of regrowth is not completely evident. The patient underwent cystoscopic evaluation by passing a 14-Bolivian ACMI flexible cystoscope per uret hra after application of 10 mL of 2% viscous lidocaine jelly per urethra. In the mid urethra, we sylvia ntified an area of small laceration, which was actively bleeding. We further evaluated the patient's urinary sphincter, which was opened at rest. Immediately above this, the patient's apex was obstruc tive, proximal to this in the proximal portion of the patient's prostatic urethra, multiple inflammat ory type blebs secondary to previous transurethral resection were observed. There was minor bleeding also from this area. We entered the patient's bladder. Panendoscopic evaluation of the patient's b ladder was not performed due to the large retained bladder volume of over 1200 mL. Limited panendosc opic evaluation did not identify any bleeding lesions within the patient's bladder. We placed a 0.03 5 straight Glidewire into the patient's bladder. We then passed a 22-Bolivian through 3-way Diane cath eter over the Glidewire using habematolel technique. This was advanced into the patient's bladder until urine return occurred. We filled the balloon to 40 mL. The patient's urine was not grossly bloody a sharno the level of the previous injuries and therefore we did attach CBI to an off position for now. The patient may experience rebleeding given the friability nature of his enlarged prostate. Urine recovered over 1200 mL. ESTIMATED BLOOD LOSS: Less than 5 mL also associated with previous lacerations within the urethra. COMPLICATIONS: None evident. DRAINS AND TUBES: A 22-Bolivian 3-way Diane catheter to sterile water CBI which is turned off for now and to gravity bag.
--- NOTE | 2017-03-20 18:19 | CON ---
DATE OF HOSPITAL ADMISSION: 03/15/2017 DATE OF CONSULTATION REQUEST AND REPORT: 03/20/2017 REASON FOR CONSULTATION: 1. Urinary retention. 2. Inability to catheterize with gross blood per urethra after attempted catheterization. 3. Acute neurologic syndrome in the context of hypertensive crisis. HISTORY OF PRESENT ILLNESS: Mr. Jose Mascorro is a pleasant 87-year-old white male who admitted on 03/15/2017 after development of acute weakness in his bilateral lower extremities and the presence o f a hypertensive crisis. The patient was admitted to the [facility] and has been underg oing evaluation. He has not had obvious stroke, has not had any seizure activity. 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 Dr. Rene Blake was consulted earlier in the hospitalization due to gross hematuria. The p atient apparently had had four gross hematuria episodes at home with the preceding year. Dr. Blake evaluated the patient and the patient had general clearing of his urine. He did have a CT imaging st udy of his abdomen and pelvis, which did reveal an obvious source for the gross hematuria. Dr. Rafiq vasquez signed off until outpatient followup. I received a new consultation today for this patient due to urethral trauma during attempted Diane catheterization. The patient has subsequently developed in ad dition to his lower extremity weakness, urinary retention and has about 1200 mL in his bladder. I israel ve been consulted for evaluation and assessment of the patient and possible catheter placement. PAST MEDICAL HISTORY: 1. Gross hematuria without gross hematuria evaluation. 2. Coronary artery disease. 3. Hypertension. 4. Hyperlipidemia. 5. Gastroesophageal reflux disease. 6. Benign prostatic hypertrophy, status post distant TURP of the prostate. PAST SURGICAL HISTORY: 1. TURP greater than 10 years ago. 2. Coronary artery bypass graft in 2012 x2 vessels. 3. Coronary artery stent placement x2 vessels. 4. Inguinal hernia repair. 5. Aortic valve replacement. 6. Tonsillectomy. ALLERGIES: No known drug allergies. CURRENT MEDICATIONS: Complete outpatient medication list includes the followin. Atorvastatin 20 mg p.o. at bedtime. 2. Omeprazole 20 mg p.o. daily. 3. Lisinopril 20 mg per day. 4. Doxazosin 2 mg p.o. daily. 5. Aspirin 325 mg p.o. daily. 6. Furosemide 20 mg p.o. daily. 7. Carvedilol 3.125 mg p.o. b.i.d. 8. Hydralazine 75 mg p.o. b.i.d. with meals. FAMILY MEDICAL HISTORY: No history of disorders. SOCIAL HISTORY: The patient does not use alcohol. He is not a smoker. He is . REVIEW OF SYSTEMS: Patient is deaf and is not able to follow any complete review of systems by himse lf. He also may have altered mental status based on the evaluation. PHYSICAL EXAMINATION: VITAL SIGNS: Temperature is 98.2, pulse 68, respirations 20, O2 saturations 96%, blood pressure is 1 29/61. HEAD, EYES, EARS, NOSE AND THROAT: Extraocular movements are intact. Sclerae are anicteric. Oropha rynx is clear. NECK: Supple. LUNGS: Clear on the right. There are some coarseness of breath sounds in the left with slight wheez ing, particularly noticeable on the left lower lobe. CARDIAC: Regular rate and rhythm. ABDOMEN: Soft and nontender superior to the umbilicus. Inferiorly, there is fullness, mild discomfo rt on palpation. GENITOURINARY: Phallus is circumcised and is without external lesion. Urethral meatus appears adequ ate. Retraction of foreskin; finds no lesions beneath. RECTAL: Digital rectal examination is performed and finds prostate regrowth after previous TURP. Pr ostate is relatively indurated bilaterally in areas and is greater than 40 grams. I am not able to r each the upper aspect of the prostate. EXTREMITIES: Other limited strength in all 4 extremities, patient is able to move the lower extremit ies with flexion and extension; however, he is fairly weaker and just barely able to overcome gravity with simple lifting of the legs. His bilateral upper extremities also appear somewhat weak with strickland ited flexion and extension, but he is able to overcome gravity. Gait was not assessed due to the checo rologic condition. LABORATORY STUDIES: There is no PSA available in the computer on this patient. [place] [address] yesterday, hemoglobin 11.6, hematocrit 35.2. Left shift notable since 03/17/2017, currently at 77.3%. There was an ANC elevation as well currently at 8500. Serum chemistry panel shows current sodium of 119, chloride of 86; both of these are low, potassium i s 3.7, creatinine has risen over the last few days with creatinine 1.25, blood urea nitrogen of 22 al so almost doubling over the last 2-3 days. Microbiology profile, patient's urine culture is negative at 48 hours on 03/15/2017. ASSESSMENT AND PLAN: 1. Urethral trauma during placement of catheter. Patient has history of previous transurethral rese ction of prostate gland and probably has friable regrowth and/or stricture; we will assess that by cy stoscopic assessment today. 2. Urinary retention, it is too early to chalk up the patient's urinary retention episode to simply neurologic causes, although that would be possible given the current presentation. The patient may h ave constipation or other causes, which may contribute to the inability to empty the bladder. Certai nly regrowth of the patient's prostate could be a contributor as well. The patient will undergo procedure today. Please see separately dictated note for that. Total of 80 minutes of initial inpatient consultation was spent on this patient due to his urethral t rauma issues and acute urinary retention presentation.
[2017-03-20] MEDS: Atorvastatin Calcium 40 MG TAB PO SCH (19:47)
--- NOTE | 2017-03-20 20:09 | PRG ---
DATE OF SERVICE: 03/21/2017 SUBJECTIVE: Patient was seen and examined at bedside and overnight events noted. Patient denies any shortness of breath or chest pain or palpitation. No history of nausea or vomiting or diarrhea or fever or chills or cramps. OBJECTIVE: GENERAL: This is a well-built male in no apparent distress. VITAL SIGNS: Temperature 98.0, pulse 68, respiratory rate 18, blood pressure 139/67. HEENT: Atraumatic, normocephalic. Oral mucosa is moist. NECK: Supple. CARDIOVASCULAR: S1, S2 heard. Rate and rhythm regular. RESPIRATORY: Clear to auscultation. GASTROINTESTINAL: Abdomen is soft. MUSCULOSKELETAL: No tenderness. No edema. DERMATOLOGIC: No skin rash. NEUROLOGIC: Alert and awake and oriented x3. No focal neurologic deficits. Moving all the extremities. PSYCHIATRIC: Mood and affect normal. LABORATORY DATA: Sodium was 118, potassium is 4.0, BUN 26, and creatinine is 1.3. ASSESSMENT AND PLAN: 1. 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 We will continue on salt tablet. Patient is tolerating well. No indication for hypertonic saline as patient is asymptomatic and we will give a dose of Conivaptan and continue salt tablet with fluid restriction. will consider hypertonic saline if symptomatic. 2. Hypochloremia. 3. Hypertension, much better. 4. Edema, controlled. 5. 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 TSH and cortisol level was normal. 6. 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 7. Prognosis remains guarded. We will follow. [facility]
--- NOTE | 2017-03-20 22:16 | PDOC.EVN ---
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 RT did a Negative inspiratory pressure of -30. On bedside evaluation he was could only count to 7, when on evaluation 2 hours ago he could count to 20. He was becoming more sleepy but was still easily arousable. With signs of respiratory difficulty we transferred to [facility] and started patient on BiPap. Ordered an ABG now.
[2017-03-20 22:55] LABS: Modified Allen's Test POSITIVE; Oxyhemoglobin 95.1 % (94.0-97.0); Sodium 118 mmol/L (135-148)
[2017-03-20 22:56] LABS: Mode BIPAP; PIP 10 cmH2O
[2017-03-21] MEDS ORDERED: methylPREDNISolone 4 mg Tablet PO SCH ×4 (00:01→21:00)
[2017-03-21 05:24] LABS: Anion Gap 11 mmol/L (10-20); BUN (Urea Nitrogen) 34 mg/dL (8.4-25.7); Calc. Creatinine Clearance 40 mL/min (70-130); Calcium 7.9 mg/dL (7.8-10.44); Carbon Dioxide 24 mmol/L (23-31); Chloride 88 mmol/L (98-107); Estimated GFR-MDRD 45
[2017-03-21 06:00] LABS: #Basophils 0.1 thou/uL (0.0-0.2); #Lymphocytes 0.2 thou/uL (1.20-3.40); #Monocytes 0.4 thou/uL (0.11-0.59); #Neutrophils 8.2 thou/uL (1.40-6.50); %Basophils 1.5 % (0.0-1.0); %Eosinophils 0.1 % (0.0-10.0); Hematocrit 32.7 % (42.0-52.0); Mean Platelet Volume 8.1 fL (7.4-10.4); Red Blood Cell (RBC) Count 3.91 mill/uL (4.70-6.10); White Blood Cell (WBC) Count 8.9 thou/uL (4.8-10.8)
[2017-03-21] MEDS ORDERED: Sodium Chloride 3% 100 ML IVPB SCH (07:15)
--- NOTE | 2017-03-21 07:34 | PDOC.FM ---
- Subjective Subjective: Pt reports doing better this morning. Reports still having some numbness in his fingertips. But says is much improved. Says weakness in his legs is much improved. Is currently on BIPAP. Doing well. Denies any increased SOB. Denies any other concerns or complaints at this time. - Objective Vital Signs & Weight: Vital Signs (12 hours) Temp Pulse Resp BP Pulse Ox 03/21/17 04:00 98.6 F 53 L 14 113/57 L 99 03/21/17 00:00 97.0 F L 58 L 16 127/50 L 98 03/20/17 23:23 59 L 03/20/17 21:00 97.9 F 59 L 18 96 Weight Weight 80.694 kg I&O: 03/20/17 03/21/17 03/22/17 06:59 06:59 06:59 Intake Total 600 680 Output Total 1775 Balance 600 -1095 Result Diagrams: 03/21/17 04:07 03/21/17 04:10 Radiology Reviewed by me: Yes (No new imaging to review) <Eamon Cervantes - Last Filed: 03/21/17 07:29> - Objective Vital Signs & Weight: Vital Signs (12 hours) Temp Pulse Resp BP BP Pulse Ox 03/21/17 08:47 100 03/21/17 08:23 136/54 L 03/21/17 08:22 53 L 136/54 L 03/21/17 08:21 53 L 136/54 L 03/21/17 08:00 98.7 F 65 19 136/54 L 100 03/21/17 04:00 98.6 F 53 L 14 113/57 L 99 03/21/17 00:00 97.0 F L 58 L 16 127/50 L 98 03/20/17 23:23 59 L Weight Weight 80.694 kg I&O: 03/20/17 03/21/17 03/22/17 06:59 06:59 06:59 Intake Total 600 680 Output Total 1775 Balance 600 -1095 Result Diagrams: 03/21/17 04:07 03/21/17 04:10 <Jasen Bell - Last Filed: 03/21/17 10:14> Phys Exam - Physical Examination Constitutional: NAD HEENT: PERRLA, moist MMs Neck: no nodes, no JVD, supple Respiratory: clear to auscultation bilateral BIPAP breath sounds noted Cardiovascular: RRR, no significant murmur, no rub Gastrointestinal: soft, non-tender, no distention, positive bowel sounds Musculoskeletal: no edema, pulses present Neurological: moves all 4 limbs Still reports numbness in fingertips and feet. 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 Had a few clots pass. Still able to pee at this time. Urine clearing up at this time. -Urology Consulted- Dr. Blake. -Got serial urines x3. Improved over the course. Plan is to f/u outpt with possible cystoscopy in Mar. -Will follow recommendations -Having decreased urinary output overnight and trouble emptying bladder today. Will get bladder scan. (5) ZAID (acute kidney injury) Code(s): N17.9 - ACUTE KIDNEY FAILURE, UNSPECIFIED Status: Acute Plan: (6) Hyponatremia Code(s): E87.1 - HYPO-OSMOLALITY AND HYPONATREMIA Status: Acute (7) HLD (hyperlipidemia) Code(s): E78.5 - HYPERLIPIDEMIA, UNSPECIFIED Status: Chronic (8) S/P CABG (coronary artery bypass graft) Code(s): Z95.1 - PRESENCE OF AORTOCORONARY BYPASS GRAFT Status: Chronic Plan: - Plan Plan: Guillan-Page Syndrome -After gather history had recent abdominal illness a few weeks ago. Stocking glove presentation. Weakness started in legs. Never really reported numbness. Started having numbness in fingers a few days ago. Then weakness in fingers yesterday. Decreased Respiratory effort yesterday. -CSF studies show no increased WBC and increased Protein. 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 -Started on Octagram yesterday. Also started on medrol dose pack yesterady, will continue for 5 more days. -Pt doing much better today. Weakness and numbness much improved. -Requiring BIPAP now for breathing. Will continue to monitor and wean as tolerated. -Abnormal Gait 2/2 to problem above -Problem likely due to Guillan-Page. Will continue with plan above and continue to work with PT/OT. Patient has soldier like gait upon admission. Very uncoordinated. Was very weak. Could barely stand on his own with walker. Also had picture of possible stroke a few days into admission. MRI Head showed no acute infarct -Neurology Consulted- Dr. Beckett- . -Read MRI Head as negative. MRI [id number] due to motion 03/18 C-spine- Shows extensive stenosis. Read above in note 03/18 T-spine- No real abnormality. Read above in note MRI L-spine- Shows severe stenosis and neural foraminal narrowin. Results listed above. Could attribute to weakness. Neurosurgery Consulted- Addison YUSUF -Recommend Methylprednisone dose pack. Do not want to proceed with surgery at this time. Dose pack started yesterday. Rehab Screening processed. Patient approved for rehab pending discharge HTN Urgency -BP stable throughout the day and night. Clonidine d/c. Blood pressures could have been due to autonomic dysfunction from problem above. -Renin and Aldosterone activity pending. -Nephrology Consulted- Dr. Decker -Added nifedipine. Follow recommendations -Elevated BP may alos be related to age and anatomy of vessels. Has high difference b/w SBP and DBP. -Will continue to monitor BP. Hydralazine switched to TID. Carvedilol decreased yesterday. Will continue to monitor and adjust medications. -Denies any sx's of htn emergency at this time. Hematuria w/ Decreased Urinary Output and obstruction -Bloody urine starting a few days ago. Had a few clots pass. Still able to pee at this time. Urine clearing up at this time. -Urology Consulted- Dr. Blake. -Got serial urines x3. Improved over the course. Plan was to f/u outpt with possible cystoscopy in Mar. -Did not have any hematuria or complications until yesterday morning. Having decreased urinary output overnight and trouble emptying bladder yesterday. Blood noted when trying to pass sylvester yesterday -Urology consulted again- Dr. Hernandez -Performed Cystoscopy yesterday. Sylvseter placed -Will continue to follow recommendations ZAID Cr bumped up to 1.48 today. Patient having decreased urinary output. Just been fluid restricted due to hyponatremia and SIADH -Also could be due to decreased blood flow as blood pressure dropped overnight due to medication changes. Cut back on some of his meds. -Will continue to follow with daily BMP. -Renal u/s shows decreased flow in L. artery. Nephrology consulted-Brianne -Will await recommendations. Hyponatremia Na dropping from 128->124-->119-->119 today on BMP. 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 Being tx now at this time still awaiting renin and aldosterone activity. Was started on spirinolactone for HTN urgency problem above. It was discontinued yesterday and started on amlodipine. -Serum Osm low a few days ago. Thought Likely related to medications. Stopped furosemide and spirinolactone for the time being. Was on furosemide at home. May need to continue in future. -Nephrology- Brianne consulted Added salt pills and fluid restricted to 1500 ml a day. -Ordered metanephrines levels at this time HLD -continue home meds CAD s/p CABG in past -Aspirin being held due to hematuria. -Continuing all other home medications at this time. <Eamon Cervantes - Last Filed: 03/21/17 07:29> Attending Addendum - Attending Addendum I personally evaluated the patient and discussed the management with Dr. Cervantes. I agree with the History, Examination, Assessment and Plan documented above with any addition or exceptions noted below. 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 His NIP is improved from -30 to -60 this morning, and has been weaned off Bipap. He is more able to move his upper and lower extremities. Continue IGG and therapy. In regards to HTN, improved this morning and will monitor. In regards to hyponatremia, likely 2/2 GBS, but getting hypertonic saline this morning per Nephro. Continue to monitor in IMCU for frequent respiratory status checks. <Jasen Bell - Last Filed: 03/21/17 10:14>
[2017-03-21] MEDS ORDERED: Bisacodyl 5 MG TAB PO PRN (07:45)
[2017-03-21] MEDS: NIFEdipine XL 60 MG TAB PO SCH (08:21)
[2017-03-21] MEDS: Famotidine 20 MG TAB PO SCH ×2 (08:22→22:15)
[2017-03-21] MEDS: hydrALAZINE 25 MG TAB PO SCH ×3 (08:22→22:14)
[2017-03-21] MEDS: Finasteride 5 MG TAB PO SCH (08:22)
[2017-03-21] MEDS: Docusate 100 MG CAP PO SCH ×2 (08:22→22:14)
[2017-03-21] MEDS: Doxazosin Mesylate 4 MG TAB PO SCH (08:22)
[2017-03-21] MEDS: Carvedilol 6.25 MG TAB PO SCH ×2 (08:23→17:47)
[2017-03-21] MEDS: methylPREDNISolone 4 mg Tablet PO SCH ×3 (08:55→17:48)
[2017-03-21] MEDS: Sodium Chloride 1 GM TAB PO SCH ×3 (08:55→22:15)
[2017-03-21] MEDS: OCTAGAM 10% 80 GM in Admixture Fee 1 EACH IVPB SCH (08:58)
[2017-03-21] MEDS ORDERED: OCTAGAM 10% (10 GM/100 ML VIAL) IVPB SCH (09:00)
[2017-03-21] MEDS ORDERED: Sodium Chloride 3% 500 ML IVPB SCH ×2 (14:00→21:00)
--- NOTE | 2017-03-21 18:38 | CON ---
DATE OF CONSULTATION: 03/21/2017 CONSULTING PHYSICIAN: [facility] REASON FOR CONSULTATION: Respiratory failure related to Guillain-[place] syndrome. HISTORY OF PRESENT ILLNESS: Mr. Mascorro is a pleasant 87-year-old male who was hospitalized about a we ek ago. Originally, he complained of lower extremity weakness. He also had extremely high blood pre ssure and was experiencing hematuria. Over the course of week, he had developed progressive weakness in his legs and in his arms. 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 He is found to have high CSF protein on a lumbar puncture. He has been started on IVIG an d has started to move better. He did require BiPAP last night, but his breathing is better today. PAST MEDICAL HISTORY: 1. Coronary artery disease. 2. Hypertension. 3. Hyperlipidemia. PAST SURGICAL HISTORY: 1. He has had coronary bypass grafting surgery and coronary stent placement. 2. Hernia repair. 3. Aortic valve replacement. 4. Tonsillectomy. ALLERGIES: None. MEDICATIONS PRIOR TO ADMISSION: Atorvastatin, omeprazole, lisinopril, doxazosin, aspirin, furosemide , carvedilol, and hydralazine. INPATIENT MEDICATION: MAR was reviewed. SOCIAL HISTORY: He has been for 62 years. Does not smoke, does not consume alcohol. REVIEW OF SYSTEMS: Aside from the weakness and the hematuria, he has been doing okay and 12-point re view of systems is negative. PHYSICAL EXAMINATION: VITAL SIGNS: Temperature 98.7, pulse 53, blood pressure 136/54, sat 100% on 2 L. GENERAL: He is awake, talkative. NEUROLOGIC: He is able to move his arms and legs. HEENT: Nares clear. Oropharynx clear. NECK: No adenopathy or JVD. LUNGS: Clear to auscultation without wheezing or rhonchi. CARDIAC: S1, S2 regular. ABDOMEN: Soft and nontender. EXTREMITIES: No clubbing, cyanosis, or edema. LABORATORY AND X-RAY FINDINGS: His negative inspiratory force was -60, vital capacity of 1.5 L. His white blood cell count is 8.9, hematocrit 32.7, platelet count 224. A pH 7.50, pCO2 of 31, pO2 of 7 2. Sodium 116, potassium 4, chloride 80, CO2 of 24, BUN 34, creatinine 1.5, glucose 164. ASSESSMENT: 1. Guillain-[place] syndrome. 2. Respiratory insufficiency, which has improved after administration of IVIG. His negative inspira tory force and vital capacity are appropriate at this time. 3. Severe hyponatremia-etiology unknown, but currently being worked up by Nephrology. PLAN: 1. BiPAP as needed. 2. Continue to monitor vital capacity and negative inspiratory force. Continue care per other consu ltants involved in the case. I will be happy to follow with you.
[2017-03-21] MEDS ORDERED: Potassium Chloride 20 MEQ TAB PO SCH (21:15)
--- NOTE | 2017-03-21 21:24 | PRG ---
DATE OF SERVICE: 03/21/2017. DATE OF HOSPITAL ADMISSION: 03/15/2017 DATE OF INITIAL CONSULTATION: 03/20/2017 INITIAL REASON FOR CONSULTATION: 1. Urinary retention. 2. Benign prostatic hypertrophy with obstruction regrowth after distant past TURP. 3. Inability to catheterize with gross blood per urethra after attempted catheterization. 4. Acute neurologic syndrome in the context of hypertensive crisis. HISTORY OF PRESENT ILLNESS: Mr. Jose Mascorro is a very pleasant 87-year-old white male, admitted on 03/15/2017 after development of acute weakness in the bilateral lower extremities after a hyperten sive crisis. The patient was admitted to the Family Medicine Service and has been undergoing evaluat ion. He underwent evaluation for gross hematuria by Dr. Rene Blake who saw him earlier his hospi talization due to gross hematuria episode. The patient had 4 episodes in the preceding year. Dr. Estuardo vance evaluated the patient and reviewed the CT scan, which showed no obvious upper tract cause for th e patient's bleeding. Dr. Blake had signed off until outpatient followup and the patient subsequent ly developed acute urinary retention. Received a new consultation for the patient on 03/20/2017 due to urethral trauma and we did go ahead and performed cystoscopic evaluation and placed the catheter u katyar Glidewire assistance. The patient has had the indwelling Diane catheter in place and has been d oing well, is not required CBI although he does have a CBI type catheter. There is some hematuria ev ident in the urine collection today with some precipitants falling out in the catheter line. INTERVAL EVENTS: The patient has been moved to the [facility] for closer evaluation due to his neurologic status. Seems a little bit better overnight and is responding appropriately. An indwelling Diane ca theter remains in place. The patient did have good urine output measured at 1775 mL in total for the last 24 hours. A urine culture obtained yesterday shows no growth at 24 hours. PHYSICAL EXAMINATION: VITAL SIGNS: The patient is afebrile with temperature 98.7, pulse is 53, blood pressure is 136/54, O 2 saturations are 100%, blood pressure is 136/54. GENERAL: This is a hearing impaired elderly white male, in no distress. HEAD, EYES, EARS, NOSE AND THROAT: Extraocular movements are intact. Sclerae are anicteric. Oropha rynx is clear. NECK: Supple. LUNGS: Clear to auscultation bilaterally. CARDIAC: There is a regular rate and rhythm. There is no murmur heard. ABDOMEN: Soft and nontender. There is no suprapubic distention as it was yesterday. GENITOURINARY: Diane catheter remains in place. There is a 3-way Diane catheter, which is not curre ntly running its irrigation. Catheter line shows mostly straw colored urine with some blood precipit ated in the urine line. The patient is otherwise appears normal. ASSESSMENT AND PLAN: 1. 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 The patient is being followed b y the Family Medicine Service with regard to this. With respect to the patient's acute urinary reten tion syndrome, the patient does have bilateral lower extremity weakness. This could impact the abili ty to properly void; however, he does have a history of benign prostatic hypertrophy and does have do cumented regrowth seen on cystoscopy yesterday. I think that we should strongly consider known urolo gic causes before invoking additional ones. The patient did not appear to have a urethral stricture, but did have some urethral trauma yesterday on cystoscopy and I think that most of his obstructive f eatures probably arise from the prostate gland. His sphincter was partially opened at rest and that makes me doubt a urologic cause would cause closure of the patient's sphincter. The patient's bladde r did have 1200 mL of urine in yesterday and was somewhat over distended. Acute management of the obstruction should focus on the patient's prostate gland. As such, we did st art him on finasteride yesterday and he is already on doxazosin at 4 mg the treatment dose. We are a dding Levaquin today based on the possibility that portion of his obstructive features are due to pro statitis. The patient should be continued on that medication regimen to follow up. I would recommen d a voiding trial in my office and Dr. Blake's office with respect to his obstructive features. A v oiding trial on maximal medical therapy, if it fails, we would suggest a need for further evaluation given the neurologic presentation. The patient may need formal urodynamic evaluation before proceedi ng with interventions. 2. Gross hematuria. The patient's cystoscopic evaluation yesterday was limited by the large bladder volume and relatively dark color of the urine. I would recommend a formal cystoscopic assessment of this patient again to complete his hematuria evaluation. He may also need a formal CT/IVP to be rep eated in the future. 3. Acute kidney injury issues. These appear to be related at least in part to diuresis and the gagan ent's acute obstruction events. From a genitourinary standpoint, this patient is suitable for discharge when approved by the primary service. The patient may follow up in my office or the office of Dr. Blake for a voiding trial and further assessment of his lower urinary tract. Over 35 minutes consultation time was spent in the evaluation and treatment of this patient today.
--- NOTE | 2017-03-21 22:04 | PRG ---
DATE OF SERVICE: 03/21/2017 SUBJECTIVE: Patient was seen and examined at bedside and overnight events noted. Patient denies any shortness of breath or chest pain or palpitation. No history of nausea or vomiting or diarrhea or f ever or chills or cramps. OBJECTIVE: GENERAL: This is a well-built male in no apparent distress. VITAL SIGNS: Temperature 98.3, pulse 60, respiratory rate 18, blood pressure 132/43. HEENT: Atraumatic, normocephalic. Oral mucosa is moist. NECK: Supple. CARDIOVASCULAR: S1, S2 heard. Rate and rhythm regular. RESPIRATORY: Clear to auscultation. GASTROINTESTINAL: Abdomen is soft. MUSCULOSKELETAL: No tenderness. No edema. DERMATOLOGIC: No skin rash. NEUROLOGIC: Alert and awake and oriented x3. No focal neurologic deficits. Moving all the extremit ies. PSYCHIATRIC: Mood and affect normal. LABORATORY DATA: Sodium is 116, potassium is 3.8, BUN is 34, creatinine is 1.48. ASSESSMENT AND PLAN: 1. 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 We will continue on hypertonic saline. Patient's sodium is dropping. Currently asymptomatic, but will start on hypertonic saline. Hospital cannot arrange vaptans at this point. 2. Hyperchloremia. 3. Hypertension, much better. 4. Edema, . 5. GBS. Follow up with Neurology, currently on IVIG with significant improvement. Plan is to continue on hypertonic saline, close monitor of sodium. We will recheck sodium in the [facility].
[2017-03-21] MEDS: Atorvastatin Calcium 40 MG TAB PO SCH (22:15)
[2017-03-22 05:57] LABS: Anion Gap 8 mmol/L (10-20); BUN (Urea Nitrogen) 35 mg/dL (8.4-25.7); Calc. Creatinine Clearance 51 mL/min (70-130); Calcium 7.9 mg/dL (7.8-10.44); Carbon Dioxide 24 mmol/L (23-31); Chloride 97 mmol/L (98-107); Estimated GFR-MDRD 60
[2017-03-22] MEDS ORDERED: methylPREDNISolone 4 mg Tablet PO SCH ×2 (08:00→17:00)
[2017-03-22] MEDS: hydrALAZINE 25 MG TAB PO SCH ×3 (08:22→21:07)
[2017-03-22] MEDS: Sodium Chloride 1 GM TAB PO SCH ×3 (08:23→21:07)
[2017-03-22] MEDS: methylPREDNISolone 4 mg Tablet PO SCH ×4 (08:25→21:07)
[2017-03-22] MEDS: Finasteride 5 MG TAB PO SCH (08:25)
[2017-03-22] MEDS: Carvedilol 6.25 MG TAB PO SCH ×2 (08:25→16:41)
[2017-03-22] MEDS: Docusate 100 MG CAP PO SCH ×2 (08:25→21:08)
[2017-03-22] MEDS: Famotidine 20 MG TAB PO SCH ×2 (08:26→21:07)
[2017-03-22] MEDS: Doxazosin Mesylate 4 MG TAB PO SCH (08:26)
[2017-03-22] MEDS: NIFEdipine XL 60 MG TAB PO SCH (08:26)
--- NOTE | 2017-03-22 08:47 | PDOC.FM ---
- Subjective Subjective: Patient doing well this morning. Denies any acute events overnight. Denies any fever and chills. Says strength and weakness continues to improve. Denies any trouble breathing or increased SOB. Says he got up and worked with PT yesterday. - Objective Vital Signs & Weight: Vital Signs (12 hours) Temp Pulse Resp BP BP Pulse Ox 03/22/17 08:26 77 160/67 H 03/22/17 08:25 160/67 H 03/22/17 08:22 77 160/67 H 03/22/17 07:35 93 L 03/22/17 07:00 97.8 F 71 18 154/61 H 91 L 03/22/17 04:00 98.1 F 77 20 130/55 L 93 L 03/22/17 02:56 96 03/22/17 01:40 59 L 15 96 03/22/17 00:00 97.9 F 69 14 107/53 L 96 03/21/17 22:50 78 24 H 96 03/21/17 22:14 66 139/56 L Weight Weight 81.012 kg I&O: 03/21/17 03/22/17 03/23/17 06:59 06:59 06:59 Intake Total 680 2002 Output Total 1775 1300 Balance -1095 702 Result Diagrams: 03/21/17 04:07 03/22/17 04:49 Radiology Reviewed by me: Yes (No new imaging to be reviewed at this time) <Eamon Cervantes - Last Filed: 03/22/17 08:45> - Objective Vital Signs & Weight: Vital Signs (12 hours) Temp Pulse Resp BP BP Pulse Ox 03/22/17 08:26 77 160/67 H 03/22/17 08:25 160/67 H 03/22/17 08:22 77 160/67 H 03/22/17 08:00 97.8 F 71 18 91 L 03/22/17 07:35 93 L 03/22/17 07:00 97.8 F 71 18 154/61 H 91 L 03/22/17 04:00 98.1 F 77 20 130/55 L 93 L 03/22/17 02:56 96 03/22/17 01:40 59 L 15 96 03/22/17 00:00 97.9 F 69 14 107/53 L 96 Weight Weight 81.012 kg I&O: 03/21/17 03/22/17 03/23/17 06:59 06:59 06:59 Intake Total 680 2002 Output Total 1775 1300 Balance -1095 702 Result Diagrams: 03/21/17 04:07 03/22/17 04:49 <Jasen Bell - Last Filed: 03/22/17 10:57> Phys Exam - Physical Examination HEENT: PERRLA, moist MMs Neck: no nodes, no JVD, supple, full ROM Respiratory: no wheezing, no rales, clear to auscultation bilateral Cardiovascular: RRR, no significant murmur, no rub Gastrointestinal: non-tender, positive bowel sounds Somewhat distended, Musculoskeletal: no edema, pulses present Neurological: non-focal still reports numbness in fingertips and legs. Says much improved. 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 (2) Abnormality of gait and mobility Code(s): R26.9 - UNSPECIFIED ABNORMALITIES OF GAIT AND MOBILITY Status: Acute Plan: (3) Hypertensive urgency Code(s): I10 - ESSENTIAL (PRIMARY) HYPERTENSION Status: Resolved Plan: (4) Hematuria Code(s): R31.9 - HEMATURIA, UNSPECIFIED Status: Acute Plan: (5) ZAID (acute kidney injury) Code(s): N17.9 - ACUTE KIDNEY FAILURE, UNSPECIFIED Status: Acute Plan: (6) Hyponatremia Code(s): E87.1 - HYPO-OSMOLALITY AND HYPONATREMIA Status: Acute Plan: (7) HLD (hyperlipidemia) Code(s): E78.5 - HYPERLIPIDEMIA, UNSPECIFIED Status: Chronic (8) S/P CABG (coronary artery bypass graft) Code(s): Z95.1 - PRESENCE OF AORTOCORONARY BYPASS GRAFT Status: Chronic (9) Prostatitis Code(s): N41.9 - INFLAMMATORY DISEASE OF PROSTATE, UNSPECIFIED Status: Acute - Plan Plan: 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 Stocking glove presentation. Weakness started in legs. Never really reported numbness. Started having numbness in fingers a few days ago. Then weakness in fingers on 03/20. Decreased Respiratory effort on 03/20. -CSF studies show no increased WBC and increased Protein. 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 -Started on Octagram yesterday. Also started on medrol dose pack yesterady, will continue for 5 more days. -Pt doing much better today. Weakness and numbness much improved. -Required BIPAP overnight on 03/20. Weaned to Oxygen on 03/21. NIPs have been stable ever since. On O2 right now. Will continue to wean. -Abnormal Gait 2/2 to problem above -Problem due to Guillan-[place]. Will continue with plan above and continue to work with PT/OT. Patient had soldier like gait upon admission. Very uncoordinated. Was very weak. Could barely stand on his own with walker. Also had picture of possible stroke a few days into admission. MRI Head showed no acute infarct -Neurology Consulted- Dr. Beckett- . -Read MRI Head as negative. MRI [id number] due to motion 03/18 C-spine- Shows extensive stenosis. Read above in note 03/18 T-spine- No real abnormality. Read above in note MRI L-spine- Shows severe stenosis and neural foraminal narrowin. Results listed above. Could attribute to weakness. Neurosurgery Consulted- Addison YUSUF -Recommend Methylprednisone dose pack. Do not want to proceed with surgery at this time. Dose pack started 03/21. Rehab Screening processed. Patient approved for rehab pending discharge HTN Urgency-resolved -Currently on Carvedilol, Hydralazine, and Nifedipine. -BP stable throughout the day and night. Clonidine d/c. Blood pressures could have been due to autonomic dysfunction from problem above. -Renin and Aldosterone activity pending. -Nephrology Consulted- Dr. Decker -Added nifedipine. Follow recommendations -Elevated BP may also be related to age and anatomy of vessels. Has high difference b/w SBP and DBP. -Will continue to monitor BP. Hydralazine switched to TID. Carvedilol decrease to 6.125 mg BID . Will continue to monitor and adjust medications. -Denies any sx's of htn emergency at this time. Hematuria w/ Decreased Urinary Output and obstruction -Had hematuria upon admission. Resolved a few days in to admision. Then on tried to pass catheter and bloody urine was noted. -Urology Consulted- Dr. Blake was consulted for the first time. -Got serial urines x3. Improved over the course. Plan was to f/u outpt with possible cystoscopy in Mar. -Urology consulted again- Dr. Hernandez. for when he had decreased output and we were not able to pass sylvester cath on 03/20. -Performed Cystoscopy 03/20. Sylvester placed. -Will continue to follow recommendations. Plan mentioned in his consultation note from 03/21. Please refer for full plan. Added finasteride for BPH. Also started on levaquin for concern of prostatitis. Recommends f/u for voiding trial outpatient. 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 Non bloody this morning. Prostatitis -Suspected by Dr. Hernandez with Urology -Started on Levaquin ZAID-resolved Cr down to 1.18 today. fluid restricted due to hyponatremia and SIADH. -Will continue to follow with daily BMP. -Renal u/s shows decreased flow in L. artery. Nephrology consulted-Brianne -Will follow reccommendations Hyponatremia Na dropping from 128->124-->119-->119-->125 today on BMP. 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 Being tx now at this time Was given hypertonic saline for two days from 03/20 to 03/21. still awaiting renin and aldosterone activity- ordered when unsure of hyponatremia and HTN urgency. All problems likely related to some component of GBS Was started on spirinolactone for HTN urgency problem above. It has since then been discontinued. Likely will not need -Serum Osm low a few days ago. Thought Likely related to medications. Stopped furosemide and spirinolactone for the time being. Was on furosemide at home. May need to continue in future. -Nephrology- Vasudev consulted Added salt pills and fluid restricted to 1500 ml a day. -Ordered metanephrines levels at this time Constipation -Related to GBS. Having Active Bowel sounds -Colace and suppository given yesterday. Still no bowel movment. May add mag citrate today. HLD -continue home meds CAD s/p CABG in past -Aspirin being held due to hematuria. -Continuing all other home medications at this time. <Eamon Cervantes - Last Filed: 03/22/17 08:45> Attending Addendum - Attending Addendum I personally evaluated the patient and discussed the management with Dr. Cervantes. I agree with the History, Examination, Assessment and Plan documented above with any addition or exceptions noted below. Patient continues to improve significantly. He was able to ambulate a few steps this morning with therapy. His respiratory status is stable and will work to wean from O2 therapy. His sodium levels are improved after 3% saline therapy, continue to monitor. Will make some adjustments to BP meds today to decrease med burden while also maximizing benefit. Await further renal recs, but hopeful that patient will be stable for rehab admission within the next couple of days. <Jasen Bell - Last Filed: 03/22/17 10:57>
[2017-03-22] MEDS ORDERED: OCTAGAM 10% (10 GM/100 ML VIAL) IVPB SCH (09:00)
--- NOTE | 2017-03-22 09:25 | PDOC.PULPN ---
Progress Note: Subj/Obj - Subjective Date: 03/22/17 Time: 09:24 Subjective: Denies SOB. NIF -60, but VC down (maybe secondary to patient not understanding test) - ROS All systems: reviewed and no additional remarkable complaints except as stated - Objective Allergies/Adverse Reactions: Allergies Allergy/AdvReac Type Severity Reaction Status Date / Time No Known Allergies Allergy Verified 01/25/14 14:38 Medications: Current Medications Acetaminophen (Tylenol) 325 mg PO Q4H PRN PRN Reason: Headache/Fever or Pain Last Admin: 03/22/17 05:24 Dose: 325 mg Atorvastatin Calcium (Lipitor) 40 mg PO HS [facility] Last Admin: 03/21/17 22:15 Dose: 40 mg Bisacodyl (Dulcolax) 10 mg PO DAILYPRN PRN PRN Reason: Constipation Carvedilol (Coreg) 6.25 mg PO BID-[facility] Last Admin: 03/22/17 08:25 Dose: 6.25 mg Docusate Sodium (Colace) 100 mg PO BID [facility] Last Admin: 03/22/17 08:25 Dose: 100 mg Doxazosin Mesylate (Cardura) 4 mg PO DAILY [facility] Last Admin: 03/22/17 08:26 Dose: 4 mg Famotidine (Pepcid) 20 mg PO BID [facility] Last Admin: 03/22/17 08:26 Dose: 20 mg Finasteride (Proscar) 5 mg PO DAILY [facility] Last Admin: 03/22/17 08:25 Dose: 5 mg Hydralazine HCl (Apresoline) 10 mg SLOW IVP Q4H PRN PRN Reason: SBP Greater Than 180 Last Admin: 03/19/17 00:25 Dose: 10 mg Hydralazine HCl (Apresoline) 100 mg PO TID [facility] Last Admin: 03/22/17 08:22 Dose: 100 mg Immune Globulin (Octagam 10%) 80 gm IVPB DAILY [facility] Stop: 03/24/17 09:01 Labetalol HCl (Normodyne) 10 mg SLOW IVP Q4H PRN PRN Reason: SBP Greater Than 180 Last Admin: 03/16/17 23:13 Dose: 10 mg Levofloxacin (Levaquin) 500 mg PO 0600 [facility] Last Admin: 03/22/17 05:24 Dose: 500 mg Melatonin (Melatonin) 3 mg PO HSPRN PRN PRN Reason: Insomnia Last Admin: 03/19/17 00:25 Dose: 3 mg Methylprednisolone (Medrol) 4 mg PO 0800,1200,1700,2100 [facility] Stop: 03/22/17 21:01 Last Admin: 03/22/17 08:25 Dose: 4 mg Methylprednisolone (Medrol) 4 mg PO 0800,1200,1700 [facility] Stop: 03/23/17 17:01 Methylprednisolone (Medrol) 4 mg PO 0800,1700 [facility] Stop: 03/24/17 17:01 Methylprednisolone (Medrol) 4 mg PO 0800 [facility] Stop: 03/25/17 08:01 Nifedipine (Procardia Xl) 60 mg PO DAILY [facility] Last Admin: 03/22/17 08:26 Dose: 60 mg Ondansetron HCl (Zofran) 4 mg PO Q6H PRN PRN Reason: Nausea/Vomiting Ondansetron HCl (Zofran) 4 mg IVP Q6H PRN PRN Reason: Nausea/Vomiting Last Admin: 03/17/17 12:22 Dose: 4 mg Sodium Chloride (Sodium Chloride) 3 gm PO TID [facility] Last Admin: 03/22/17 08:23 Dose: 3 gm Tramadol HCl (Ultram) 50 mg PO Q6H PRN PRN Reason: Moderate Pain (4-6) Last Admin: 03/18/17 17:53 Dose: 50 mg MAR Reviewed: Yes Vital Signs: Vital Signs Temp 97.8 F 03/22/17 07:00 Pulse 77 03/22/17 08:26 Resp 18 03/22/17 07:00 BP 160/67 H 03/22/17 08:26 Pulse Ox 93 L 03/22/17 07:35 Intake & Output 03/21/17 03/22/17 03/22/17 18:59 06:59 18:59 Intake Total 1712 290 Output Total 750 550 Balance 962 -260 Weight 178 lb 9.6 oz Intake: Intake, IV Amount 90 Oral 520 200 Tube Feeding 1192 Output: Output, Diane 750 550 Other: Voiding Method Indwelling Catheter Indwelling Catheter Progress Note: Exam - Physical Exam Constitutional: NAD HEENT: PERRLA, moist MMs, sclera anicteric Neck: no nodes, no JVD Cardiovascular: RRR, no significant murmur, no rub Respiratory: clear to auscultation bilaterally Gastrointestinal: soft, non-tender, no distention Musculoskeletal: no edema Neurological: moves all 4 limbs Lymphatic: no nodes Deviation from normal: mildly confused Skin: no rash - Labs Result Diagrams: 03/21/17 04:07 03/22/17 04:49 Lab results: Laboratory Results - last 24 hr 03/21/17 03/21/17 03/22/17 12:53 19:50 04:49 Sodium 116 L* 120 L 125 L Potassium 4.0 3.7 4.2 Chloride 97 L Carbon Dioxide 24 Anion Gap 8 L BUN 35 H Creatinine 1.16 Estimated GFR (MDRD) 60 Glucose 154 H Calcium 7.9 Progress Note: A/P - Problems (1) Acute respiratory failure Current Visit: Yes Status: Acute Code(s): J96.00 - ACUTE RESPIRATORY FAILURE , UNSP W HYPOXIA OR HYPERCAPNIA (2) Guillain Rivera syndrome Current Visit: Yes Status: Acute Code(s): G61.0 - GUILLAIN-BARRE SYNDROME - Time Spent with Patient Time: 50% of the time was spent in coordination of care (as documented) at patient's floor/unit and/or counseling patient. - Plan Plan: NIF OK. Not sure what to make of VC. Doesn't appear to be in need of mechanical ventilation. Continuing IVIG and steroids
[2017-03-22] MEDS ORDERED: OCTAGAM IVPB SCH ×6 (11:00)
--- NOTE | 2017-03-22 16:54 | PRG ---
Patient Name: VARINDER WHALEN Date of service: 03/22/2017 Subjective: Patient was seen and examined at bedside and overnight events noted. Patient denies any shortness of breath or chest pain or palpitation. No history of nausea or vomiting or diarrhea or fever or chills or cramps. Objective: General: This is a well-built male in no apparent distress. Vital signs: Temperature 97.8, pulse 71, respiratory 18, blood pressure 160/67. HEENT: Atraumatic, normocephalic. Oral mucosa is moist. Neck: Supple. Cardiovascular: S1 S2 heard. Rate and rhythm regular. Respiratory: Clear to auscultation. Gastrointestinal: Abdomen is soft. Musculoskeletal: No tenderness. No edema. Dermatologic: No skin rash. Neurologic: Alert and awake and oriented X3. No focal neurologic deficits. Moving all the extremities. Psychiatric: Mood and affect normal. LABORATORY DATA: Sodium is 122, potassium 4.2, BUN 35, creatinine is 1.16. ASSESSMENT AND PLAN: 1. Hyponatremia, most likely syndrome of inappropriate antidiuretic hormone secretion secondary to G BS, started to do better with hypertonic saline. Plan is to repeat labs at 11:00 a.m. today and will restart on hypertonic saline if needed. Patient without acute . 2. Hypochloremia. 3. Hypertension, better. Blood pressure is elevated before the medication today. Monitor after med ications today. 4. Edema, controlled. 5. Guillain-[place] syndrome. Follow with Neurology and continue current management, the patient's we akness reportedly better. We will follow.
[2017-03-22] MEDS ORDERED: Magnesium Citrate 300 ML BOT PO SCH (17:00)
[2017-03-22] MEDS: Atorvastatin Calcium 40 MG TAB PO SCH (21:08)
[2017-03-23 04:45] LABS: Anion Gap 7 mmol/L (10-20); BUN (Urea Nitrogen) 38 mg/dL (8.4-25.7); Calc. Creatinine Clearance 58 mL/min (70-130); Carbon Dioxide 27 mmol/L (23-31); Chloride 101 mmol/L (98-107); Estimated GFR-MDRD 68
[2017-03-23] MEDS ORDERED: methylPREDNISolone 4 mg Tablet PO SCH ×2 (08:00→17:00)
--- NOTE | 2017-03-23 08:11 | PDOC.FM ---
- Subjective Subjective: Pt reports doing well this morning. Denies any fever and chills. States he has been doing well getting up. Denies any abdominal pain. Reports he had a bowel movement this morning but there is no record of it. No other concerns or complaints at this time. Per nursing patient had 2 falls overnight. Seems to be getting delirious and confused. Trying to get up on his own. - Objective MAR Reviewed: Yes Vital Signs & Weight: Vital Signs (12 hours) Temp Pulse Resp BP BP Pulse Ox 03/23/17 07:37 97.7 F 57 L 17 120/55 L 98 03/23/17 04:00 98.0 F 60 22 H 126/53 L 92 L 03/23/17 03:10 95 03/23/17 00:46 98.3 F 64 20 138/51 L 95 03/22/17 21:07 60 141/49 H Weight Weight 81.556 kg I&O: 03/22/17 03/23/17 03/24/17 06:59 06:59 06:59 Intake Total 2001 1579 Output Total 1300 900 Balance 702 680 Result Diagrams: 03/21/17 04:07 03/23/17 03:46 Radiology Reviewed by me: Yes (No new images to review ) <Eamon Cervantes - Last Filed: 03/23/17 08:09> - Objective Vital Signs & Weight: Vital Signs (12 hours) Temp Pulse Resp BP BP Pulse Ox 03/23/17 09:32 118/50 L 03/23/17 08:45 58 L 118/50 L 03/23/17 07:37 97.7 F 57 L 17 120/55 L 98 03/23/17 04:00 98.0 F 60 22 H 126/53 L 92 L 03/23/17 03:10 95 03/23/17 00:46 98.3 F 64 20 138/51 L 95 Weight Weight 81.556 kg I&O: 03/22/17 03/23/17 03/24/17 06:59 06:59 06:59 Intake Total 2001 1579 Output Total 1300 900 Balance 702 680 Result Diagrams: 03/21/17 04:07 03/23/17 03:46 <Jasen Bell - Last Filed: 03/23/17 10:08> Phys Exam - Physical Examination HEENT: PERRLA, moist MMs, oral pharynx no lesions Neck: no nodes, supple, full ROM Respiratory: no wheezing, no rales, no rhonchi, clear to auscultation bilateral Cardiovascular: RRR, no significant murmur, no rub Gastrointestinal: non-tender, positive bowel sounds Distended Musculoskeletal: no edema, pulses present Neurological: non-focal, normal sensation, moves all 4 limbs Still weak as he keeps falling trying to get up on his own Lymphatic: no nodes Psychiatric: normal affect, A&O x 3 Skin: no rash, normal turgor, cap refill <2 seconds <Eamon Cervantes - Last Filed: 03/23/17 08:09> Dx/Plan (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 (2) Abnormality of gait and mobility Code(s): R26.9 - UNSPECIFIED ABNORMALITIES OF GAIT AND MOBILITY Status: Acute (3) Hypertensive urgency Code(s): I10 - ESSENTIAL (PRIMARY) HYPERTENSION Status: Resolved (4) Hematuria Code(s): R31.9 - HEMATURIA, UNSPECIFIED Status: Acute (5) ZAID (acute kidney injury) Code(s): N17.9 - ACUTE KIDNEY FAILURE, UNSPECIFIED Status: Acute (6) Hyponatremia Code(s): E87.1 - HYPO-OSMOLALITY AND HYPONATREMIA Status: Acute (7) HLD (hyperlipidemia) Code(s): E78.5 - HYPERLIPIDEMIA, UNSPECIFIED Status: Chronic (8) S/P CABG (coronary artery bypass graft) Code(s): Z95.1 - PRESENCE OF AORTOCORONARY BYPASS GRAFT Status: Chronic (9) Prostatitis Code(s): N41.9 - INFLAMMATORY DISEASE OF PROSTATE, UNSPECIFIED Status: Acute (10) Delirium Code(s): R41.0 - DISORIENTATION, UNSPECIFIED Status: Acute Plan: - Plan 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 Stocking glove presentation on Monday 03/19 and Tuesday 03/20. Weakness started in legs. Never really reported numbness. Started having numbness in fingers a on . Then weakness in fingers on 03/20. Also was having some SOB starting around 03/18. Attributed initially to deconditioning as patient was not mobile. Decreased Respiratory effort on 03/20. -CSF studies show no increased WBC and increased Protein. 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 -Started on Octagram 03/20. Recieved appropriate 2 day course of IVIG. Discussed with Dr. Griffith about tx course. Also started on medrol dose pack yesterady, will continue for 5 more days. -Pt doing much better today. Weakness and numbness continues to improve -Required BIPAP overnight on 03/20. Weaned to Oxygen on 03/21. NIPs have been stable ever since. On O2 right now. Will continue to wean. -Abnormal Gait 2/2 to problem above -Problem due to Guillan-Orient. Will continue with plan above and continue to work with PT/OT. Patient had soldier like gait upon admission. Very uncoordinated. Was very weak. Could barely stand on his own with walker. Also had picture of possible stroke a few days into admission. Initially we thought leg weakness was due to MRI images. Hand weakness did not come on til later. MRI Head showed no acute infarct -Neurology Consulted- Dr. Beckett- . -Read MRI Head as negative. MRI [id number] due to motion 03/18 C-spine- Shows extensive stenosis. Read above in note 03/18 T-spine- No real abnormality. Read above in note MRI L-spine- Shows severe stenosis and neural foraminal narrowin. Results listed above. Could attribute to weakness. Neurosurgery Consulted- Addison YUSUF -Recommend Methylprednisone dose pack. Do not want to proceed with surgery at this time. Dose pack started 03/21. Rehab Screening processed. Patient approved for rehab pending discharge HTN Urgency-resolved -Currently on Carvedilol, Hydralazine, and Nifedipine. -BP stable throughout the day and night. Clonidine d/c. Blood pressures could have been due to autonomic dysfunction from problem above. -Renin and Aldosterone activity pending. -Nephrology Consulted- Dr. Decker -Added nifedipine. Follow recommendations -Elevated BP may also be related to age and anatomy of vessels. Has high difference b/w SBP and DBP. -Will continue to monitor BP. Hydralazine was switched to TID on this visit. Carvedilol decrease to 6.125 mg BID as of now. Will continue to monitor and adjust medications. Was on furosemide at home bid. We stopped it initially in the visit when we thought it could be causing his electrolyte disturbances. BP stable now. -Never reported any signs or sx's of HTN urgency Hematuria w/ Decreased Urinary Output and obstruction -Had hematuria upon admission. Resolved a few days in to admision. Then on tried to pass catheter and bloody urine was noted. -Urology Consulted- Dr. Blake was consulted for the first time. -Got serial urines x3. Improved over the course. Plan was to f/u outpt with possible cystoscopy in Mar. -Urology consulted again- Dr. Hernandez. for when he had decreased output and we were not able to pass sylvester cath on 03/20. -Performed Cystoscopy 03/20. Sylvester placed. -Will continue to follow recommendations. Plan mentioned in his consultation note from 03/21. Please refer for full plan. Added finasteride for BPH. Also started on levaquin for concern of prostatitis. Recommends f/u for voiding trial outpatient. 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 Non bloody this morning. Prostatitis -Suspected by Dr. Hernandez with Urology -Started on Levaquin ZAID-resolved Cr down to 1.03 today. fluid restricted due to hyponatremia and SIADH. -Will continue to follow with daily BMP. -Renal u/s shows decreased flow in L. artery. Nephrology consulted-Brianne -Will follow reccommendations Hyponatremia Na dropping from 128->124-->119-->119-->125-->130 today on BMP. 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 Being tx now at this time Was given hypertonic saline for two days from 03/20 to 03/21. still awaiting renin and aldosterone activity- ordered when unsure of hyponatremia and HTN urgency. All problems likely related to some component of GBS Was started on spirinolactone for HTN urgency problem above. It has since then been discontinued. Likely will not need -Serum Osm low a few days ago. Thought Likely related to medications. Stopped furosemide and spirinolactone for the time being. Was on furosemide at home. May need to continue in future. -Nephrology- Vasudev consulted Added salt pills and fluid restricted to 1500 ml a day. -Ordered metanephrines levels at this time Constipation -Related to GBS. Having Active Bowel sounds -Colace and suppository given yesterday. Still no bowel movment. Added mag citrate. Delirium Pt had 2 falls overnight. Episodes of confusion where he states he was getting up to grab stuff out of the closet. When I saw him this morning was A&Ox3. Pt has had almost week and half hospital stay. May consider adding low dose seroquel at night. HLD -continue home meds CAD s/p CABG in past -Aspirin being held due to hematuria. -Continuing all other home medications at this time. <Eamon Cervantes - Last Filed: 03/23/17 08:09> Attending Addendum - Attending Addendum I personally evaluated the patient and discussed the management with Dr. Cervantes. I agree with the History, Examination, Assessment and Plan documented above with any addition or exceptions noted below. Patient continues to improve from respiratory status and neurological standpoint. Continue therapy and nearing point of stability for transfer to inpatient rehab. He has some evidence of delirium at night, resulting in falls out of bed. Will try Haldol PO qhs to see if improves. Discussed re-orienting and maintaining normal sleep wake cycle importance with . BP improved, continue to de-escalate therapy as tolerated. Sodium continues to improve. Once stable, should be stable for transfer to rehab. <Jasen Bell - Last Filed: 03/23/17 10:08>
[2017-03-23] MEDS: methylPREDNISolone 4 mg Tablet PO SCH ×3 (08:36→17:52)
[2017-03-23] MEDS: Docusate 100 MG CAP PO SCH ×2 (08:37→21:04)
[2017-03-23] MEDS: Famotidine 20 MG TAB PO SCH ×2 (08:37→21:03)
[2017-03-23] MEDS: Finasteride 5 MG TAB PO SCH (08:37)
[2017-03-23] MEDS: Doxazosin Mesylate 4 MG TAB PO SCH (08:40)
[2017-03-23] MEDS: hydrALAZINE 25 MG TAB PO SCH ×3 (08:45→21:05)
[2017-03-23] MEDS: NIFEdipine XL 60 MG TAB PO SCH (08:45)
[2017-03-23] MEDS: Carvedilol 6.25 MG TAB PO SCH ×2 (09:32→17:52)
[2017-03-23] MEDS: Sodium Chloride 1 GM TAB PO SCH ×3 (11:08→21:05)
--- NOTE | 2017-03-23 11:39 | PDOC.PULPN ---
Progress Note: Subj/Obj - Subjective Date: 03/23/17 Time: 11:37 - ROS Respiratory: productive cough - Objective Allergies/Adverse Reactions: Allergies Allergy/AdvReac Type Severity Reaction Status Date / Time No Known Allergies Allergy Verified 01/25/14 14:38 Medications: Current Medications Acetaminophen (Tylenol) 325 mg PO Q4H PRN PRN Reason: Headache/Fever or Pain Last Admin: 03/22/17 05:24 Dose: 325 mg Atorvastatin Calcium (Lipitor) 40 mg PO [facility] Last Admin: 03/22/17 21:08 Dose: 40 mg Bisacodyl (Dulcolax) 10 mg PO DAILYPRN PRN PRN Reason: Constipation Carvedilol (Coreg) 6.25 mg PO BID-[facility] Last Admin: 03/23/17 09:32 Dose: Not Given Docusate Sodium (Colace) 100 mg PO BID [facility] Last Admin: 03/23/17 08:37 Dose: 100 mg Doxazosin Mesylate (Cardura) 4 mg PO DAILY [facility] Last Admin: 03/23/17 08:40 Dose: 4 mg Famotidine (Pepcid) 20 mg PO BID [facility] Last Admin: 03/23/17 08:37 Dose: 20 mg Finasteride (Proscar) 5 mg PO DAILY [facility] Last Admin: 03/23/17 08:37 Dose: 5 mg Haloperidol (Haldol) 0.5 mg PO [facility] Hydralazine HCl (Apresoline) 10 mg SLOW IVP Q4H PRN PRN Reason: SBP Greater Than 180 Last Admin: 03/19/17 00:25 Dose: 10 mg Hydralazine HCl (Apresoline) 100 mg PO TID [facility] Last Admin: 03/23/17 08:45 Dose: 100 mg Labetalol HCl (Normodyne) 10 mg SLOW IVP Q4H PRN PRN Reason: SBP Greater Than 180 Last Admin: 03/16/17 23:13 Dose: 10 mg Levofloxacin (Levaquin) 500 mg PO 0600 [facility] Last Admin: 03/23/17 06:30 Dose: 500 mg Melatonin (Melatonin) 3 mg PO HSPRN PRN PRN Reason: Insomnia Last Admin: 03/19/17 00:25 Dose: 3 mg Methylprednisolone (Medrol) 4 mg PO 0800,1200,1700 [facility] Stop: 03/23/17 17:01 Last Admin: 03/23/17 11:08 Dose: 4 mg Methylprednisolone (Medrol) 4 mg PO 0800,1700 [facility] Stop: 03/24/17 17:01 Methylprednisolone (Medrol) 4 mg PO 0800 [facility] Stop: 03/25/17 08:01 Nifedipine (Procardia Xl) 60 mg PO DAILY [facility] Last Admin: 03/23/17 08:45 Dose: 60 mg Ondansetron HCl (Zofran) 4 mg PO Q6H PRN PRN Reason: Nausea/Vomiting Ondansetron HCl (Zofran) 4 mg IVP Q6H PRN PRN Reason: Nausea/Vomiting Last Admin: 03/17/17 12:22 Dose: 4 mg Sodium Chloride (Sodium Chloride) 3 gm PO TID [facility] Last Admin: 03/23/17 11:08 Dose: 3 gm Tramadol HCl (Ultram) 50 mg PO Q6H PRN PRN Reason: Moderate Pain (4-6) Last Admin: 03/18/17 17:53 Dose: 50 mg MAR Reviewed: Yes Vital Signs: Vital Signs Temp 97.7 F 03/23/17 08:35 Pulse 58 L 03/23/17 08:45 Resp 22 H 03/23/17 08:35 BP 118/50 L 03/23/17 09:32 Pulse Ox 98 03/23/17 08:35 Intake & Output 03/22/17 03/23/17 03/23/17 18:59 06:59 18:59 Intake Total 1340 240 Output Total 600 300 Balance 740 -60 Weight 179 lb 12.8 oz Intake: Intake, IV Amount 90 Oral 1250 240 Output: Output, Diane 600 300 Other: Voiding Method Indwelling Catheter Indwelling Catheter Indwelling Catheter Progress Note: Exam - Physical Exam Constitutional: NAD HEENT: PERRLA, sclera anicteric Neck: no nodes Cardiovascular: RRR Respiratory: clear to auscultation bilaterally Gastrointestinal: soft, no distention Musculoskeletal: no edema Neurological: moves all 4 limbs Lymphatic: no nodes Deviation from normal: demented Skin: no rash - Labs Result Diagrams: 03/21/17 04:07 03/23/17 03:46 Lab results: Laboratory Results - last 24 hr 03/22/17 03/22/17 03/23/17 10:55 16:37 03:46 Sodium 125 L 126 L 130 L Potassium 4.5 4.1 4.6 Chloride 101 Carbon Dioxide 27 Anion Gap 7 L BUN 38 H Creatinine 1.03 Estimated GFR (MDRD) 68 Glucose 172 H Calcium 8.0 Progress Note: A/P - Problems (1) Acute respiratory failure Current Visit: Yes Status: Acute Code(s): J96.00 - ACUTE RESPIRATORY FAILURE , UNSP W HYPOXIA OR HYPERCAPNIA (2) Guillain Rivera syndrome Current Visit: Yes Status: Acute Code(s): G61.0 - GUILLAIN-BARRE SYNDROME - Time Spent with Patient Time: 50% of the time was spent in coordination of care (as documented) at patient's floor/unit and/or counseling patient. - Plan Plan: Needs disposition. Pulmonary status OK. Fall risk
[2017-03-23] MEDS: Atorvastatin Calcium 40 MG TAB PO SCH (21:03)
--- NOTE | 2017-03-23 21:53 | PRG ---
DATE OF SERVICE: 03/23/2017 SUBJECTIVE: Patient was seen and examined at bedside and overnight events noted. Patient denies any shortness of breath or chest pain or palpitation. No history of nausea or vomiting or diarrhea or f ever or chills or cramps. OBJECTIVE: GENERAL: This is a well-built male in no apparent distress. VITAL SIGNS: Temperature 97.5, pulse 60, respiratory 18, blood pressure 131/50. HEENT: Atraumatic, normocephalic. Oral mucosa is moist. NECK: Supple. CARDIOVASCULAR: S1, S2 heard. Rate and rhythm regular. RESPIRATORY: Clear to auscultation. GASTROINTESTINAL: Abdomen is soft. MUSCULOSKELETAL: No tenderness. No edema. DERMATOLOGIC: No skin rash. NEUROLOGIC: Alert and awake and oriented x3. No focal neurologic deficits. Moving all the extremit ies. PSYCHIATRIC: Mood and affect normal. LABORATORY DATA: Sodium is 130, potassium is 4.6, creatinine is 1.03. ASSESSMENT AND PLAN: 1. 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 Sodium level is stable. We will hold hypertonic saline. Continue on salt tablet. 2. Hypochloremia. 3. Hypertension. 4. Edema. 5. . Continue salt tablet. Limit fluid intake.
[2017-03-24 04:44] LABS: Anion Gap 9 mmol/L (10-20); BUN (Urea Nitrogen) 43 mg/dL (8.4-25.7); Calc. Creatinine Clearance 58 mL/min (70-130); Calcium 8.3 mg/dL (7.8-10.44); Carbon Dioxide 25 mmol/L (23-31); Chloride 103 mmol/L (98-107); Estimated GFR-MDRD 68
[2017-03-24] MEDS ORDERED: methylPREDNISolone 4 mg Tablet PO SCH ×2 (08:00→21:00)
[2017-03-24] MEDS ORDERED: Carvedilol 3.125 MG TAB PO SCH (08:30)
[2017-03-24] MEDS: Doxazosin Mesylate 4 MG TAB PO SCH (08:31)
[2017-03-24] MEDS: methylPREDNISolone 4 mg Tablet PO SCH ×2 (08:31→17:10)
[2017-03-24] MEDS: NIFEdipine XL 60 MG TAB PO SCH (08:31)
[2017-03-24] MEDS: hydrALAZINE 25 MG TAB PO SCH ×2 (08:32→17:09)
[2017-03-24] MEDS: Famotidine 20 MG TAB PO SCH (08:32)
[2017-03-24] MEDS: Finasteride 5 MG TAB PO SCH (08:32)
[2017-03-24] MEDS: Docusate 100 MG CAP PO SCH (08:37)
--- NOTE | 2017-03-24 08:41 | PDOC.PULPN ---
Progress Note: Subj/Obj - Subjective Date: 03/24/17 Time: 08:39 - ROS Respiratory: no reported symptoms - Objective Allergies/Adverse Reactions: Allergies Allergy/AdvReac Type Severity Reaction Status Date / Time No Known Allergies Allergy Verified 01/25/14 14:38 Medications: Current Medications Acetaminophen (Tylenol) 325 mg PO Q4H PRN PRN Reason: Headache/Fever or Pain Last Admin: 03/22/17 05:24 Dose: 325 mg Atorvastatin Calcium (Lipitor) 40 mg PO HS [facility] Last Admin: 03/23/17 21:03 Dose: 40 mg Bisacodyl (Dulcolax) 10 mg PO DAILYPRN PRN PRN Reason: Constipation Carvedilol (Coreg) 3.125 mg PO NOW [facility] Stop: 03/24/17 10:00 Last Admin: 03/24/17 08:32 Dose: 3.125 mg Docusate Sodium (Colace) 100 mg PO BID [facility] Last Admin: 03/24/17 08:37 Dose: Not Given Doxazosin Mesylate (Cardura) 4 mg PO DAILY [facility] Last Admin: 03/24/17 08:31 Dose: 4 mg Famotidine (Pepcid) 20 mg PO BID [facility] Last Admin: 03/24/17 08:32 Dose: 20 mg Finasteride (Proscar) 5 mg PO DAILY [facility] Last Admin: 03/24/17 08:32 Dose: 5 mg Haloperidol (Haldol) 0.5 mg PO HS [facility] Last Admin: 03/23/17 21:03 Dose: 0.5 mg Hydralazine HCl (Apresoline) 10 mg SLOW IVP Q4H PRN PRN Reason: SBP Greater Than 180 Last Admin: 03/19/17 00:25 Dose: 10 mg Hydralazine HCl (Apresoline) 100 mg PO TID [facility] Last Admin: 03/24/17 08:32 Dose: 100 mg Labetalol HCl (Normodyne) 10 mg SLOW IVP Q4H PRN PRN Reason: SBP Greater Than 180 Last Admin: 03/16/17 23:13 Dose: 10 mg Levofloxacin (Levaquin) 500 mg PO 0600 [facility] Last Admin: 03/24/17 05:43 Dose: 500 mg Melatonin (Melatonin) 3 mg PO HSPRN PRN PRN Reason: Insomnia Last Admin: 03/19/17 00:25 Dose: 3 mg Methylprednisolone (Medrol) 4 mg PO 0800,1700 [facility] Stop: 03/24/17 17:01 Last Admin: 03/24/17 08:31 Dose: 4 mg Methylprednisolone (Medrol) 4 mg PO 0800 [facility] Stop: 03/25/17 08:01 Nifedipine (Procardia Xl) 60 mg PO DAILY [facility] Last Admin: 03/24/17 08:31 Dose: 60 mg Ondansetron HCl (Zofran) 4 mg PO Q6H PRN PRN Reason: Nausea/Vomiting Ondansetron HCl (Zofran) 4 mg IVP Q6H PRN PRN Reason: Nausea/Vomiting Last Admin: 03/17/17 12:22 Dose: 4 mg Sodium Chloride (Sodium Chloride) 2 gm PO BID [facility] Tramadol HCl (Ultram) 50 mg PO Q6H PRN PRN Reason: Moderate Pain (4-6) Last Admin: 03/18/17 17:53 Dose: 50 mg MAR Reviewed: Yes Vital Signs: Vital Signs Temp 96.3 F L 03/24/17 07:05 Pulse 65 03/24/17 08:32 Resp 16 03/24/17 07:05 BP 144/60 H 03/24/17 08:32 Pulse Ox 93 L 03/24/17 07:05 Intake & Output 03/23/17 03/24/17 03/24/17 18:59 06:59 18:59 Intake Total 300 200 Output Total 250 500 Balance 50 -300 Weight 178 lb 14.4 oz Intake: Oral 300 200 Output: Output, Diane 250 500 Other: Voiding Method Indwelling Catheter Indwelling Catheter # Bowel Movements 1 Progress Note: Exam - Physical Exam Constitutional: NAD HEENT: PERRLA, sclera anicteric Neck: no JVD Cardiovascular: RRR Respiratory: clear to auscultation bilaterally Gastrointestinal: soft, non-tender Musculoskeletal: no edema Neurological: non-focal, normal sensation, moves all 4 limbs Lymphatic: no nodes Psychiatric: normal affect Skin: no rash - Labs Result Diagrams: 03/21/17 04:07 03/24/17 03:47 Lab results: Laboratory Results - last 24 hr 03/24/17 03:47 Sodium 133 L Potassium 4.4 Chloride 103 Carbon Dioxide 25 Anion Gap 9 L BUN 43 H Creatinine 1.03 Estimated GFR (MDRD) 68 Glucose 141 H Calcium 8.3 Progress Note: A/P - Problems (1) Acute respiratory failure Current Visit: Yes Status: Acute Code(s): J96.00 - ACUTE RESPIRATORY FAILURE , UNSP W HYPOXIA OR HYPERCAPNIA (2) Guillain Rivera syndrome Current Visit: Yes Status: Acute Code(s): G61.0 - GUILLAIN-BARRE SYNDROME - Time Spent with Patient Time: 50% of the time was spent in coordination of care (as documented) at patient's floor/unit and/or counseling patient. - Plan Plan: Off bipap can transfer to telemetry
--- NOTE | 2017-03-24 08:53 | PDOC.FM ---
- Subjective Subjective: Pt feels well today, although he does complain of a new onset cough at about 0400. He denies all other symptoms. There were no acute events over night. - Objective MAR Reviewed: Yes Vital Signs & Weight: Vital Signs (12 hours) Temp Pulse Resp BP BP Pulse Ox 03/24/17 08:32 65 144/60 H 03/24/17 08:31 65 144/60 H 03/24/17 07:05 96.3 F L 62 16 151/62 H 93 L 03/24/17 03:28 98.3 F 65 24 H 154/70 H 95 03/23/17 23:49 61 24 H 140/51 L 97 03/23/17 21:05 62 142/60 H 03/23/17 21:00 60 21 H 96 Weight Weight 81.148 kg I&O: 03/23/17 03/24/17 03/25/17 06:59 06:59 06:59 Intake Total 1580 500 Output Total 900 750 Balance 680 -250 Result Diagrams: 03/21/17 04:07 03/24/17 03:47 Phys Exam - Physical Examination Constitutional: NAD HEENT: PERRLA, moist MMs Neck: no nodes, no JVD, supple, full ROM Respiratory: clear to auscultation bilateral Cardiovascular: RRR, no significant murmur Gastrointestinal: soft, non-tender, no distention, positive bowel sounds Musculoskeletal: no edema Neurological: non-focal, normal sensation, moves all 4 limbs Lymphatic: no nodes Psychiatric: normal affect, A&O x 3 Skin: no rash Dx/Plan (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 (2) Abnormality of gait and mobility Code(s): R26.9 - UNSPECIFIED ABNORMALITIES OF GAIT AND MOBILITY Status: Acute (3) Hematuria Code(s): R31.9 - HEMATURIA, UNSPECIFIED Status: Acute (4) Hyponatremia Code(s): E87.1 - HYPO-OSMOLALITY AND HYPONATREMIA Status: Acute (5) Prostatitis Code(s): N41.9 - INFLAMMATORY DISEASE OF PROSTATE, UNSPECIFIED Status: Acute (6) S/P CABG (coronary artery bypass graft) Code(s): Z95.1 - PRESENCE OF AORTOCORONARY BYPASS GRAFT Status: Chronic (7) Hypertensive urgency Code(s): I10 - ESSENTIAL (PRIMARY) HYPERTENSION Status: Resolved (8) ZAID (acute kidney injury) Code(s): N17.9 - ACUTE KIDNEY FAILURE, UNSPECIFIED Status: Resolved (9) Delirium Code(s): R41.0 - DISORIENTATION, UNSPECIFIED Status: Resolved - Plan 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 Weakness started in legs. Never really reported numbness. Started having numbness in fingers a on 03/19. Then weakness in fingers on 03/20. Also was having some SOB starting around 03/18. Attributed initially to deconditioning as patient was not mobile. Decreased Respiratory effort on 03/20. This has all largely resolved. Pt still has some decreased resp effort. 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 -Started on Octagram 03/20. Recieved appropriate 2 day course of IVIG. Discussed with Dr. Griffith about tx course. Also started on medrol dose pack yesterady, will continue for 5 more days. -Pt off resp support. -Abnormal Gait 2/2 to problem above -2/2 to Guillan-[place]. Will need inpt rehab -Neurology Consulted- Dr. Beckett- . -Read MRI Head as negative. MRI [id number] due to motion 03/18 C-spine- Shows extensive stenosis. Read above in note 03/18 T-spine- No real abnormality. Read above in note MRI L-spine- Shows severe stenosis and neural foraminal narrowin. Results listed above. Could attribute to weakness. Neurosurgery Consulted- Addison YUSUF -Recommend Methylprednisone dose pack. Do not want to proceed with surgery at this time. Dose pack started 03/21. HTN Urgency-resolved -Currently on Carvedilol, Hydralazine, and Nifedipine. -BP stable throughout the day and night. Clonidine d/c. Blood pressures could have been due to autonomic dysfunction from problem above. -Renin and Aldosterone activity pending. -Nephrology Consulted- Dr. Decker -Added nifedipine. Follow recommendations -Elevated BP may also be related to age and anatomy of vessels. Has high difference b/w SBP and DBP. -Will continue to monitor BP. Hydralazine was switched to TID on this visit. Carvedilol decrease to 6.125 mg BID as of now. Will continue to monitor and adjust medications. Was on furosemide at home bid. BP stable now, however carvedilol was held yesterday dt low HR. Will give half dose today -Never reported any signs or sx's of HTN urgency Hematuria w/ Decreased Urinary Output and obstruction -Had hematuria upon admission. Resolved a few days in to admision. Then on tried to pass catheter and bloody urine was noted. -Urology Consulted- Dr. Blake was consulted for the first time. -Got serial urines x3. Improved over the course. Plan was to f/u outpt with possible cystoscopy in Mar. -Urology consulted again- Dr. Hernandez. for when he had decreased output and we were not able to pass sylvester cath on 03/20. -Performed Cystoscopy 03/20. Sylvester placed. -Will continue to follow recommendations. Plan mentioned in his consultation note from 03/21. Please refer for full plan. Added finasteride for BPH. Also started on levaquin for concern of prostatitis. Recommends f/u for voiding trial outpatient. 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 Non bloody this morning. Prostatitis -Suspected by Dr. Hernandez with Urology -Started on Levaquin ZAID-resolved Cr down to 1.03 today. fluid restricted due to hyponatremia and SIADH. -Will continue to follow with daily BMP. -Renal u/s shows decreased flow in L. artery. Nephrology consulted-Brianne -Will follow reccommendations Hyponatremia Na dropping from 128->124-->119-->119-->125-->130 today on BMP. 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 Being tx now at this time Was given hypertonic saline for two days from 03/20 to 03/21. still awaiting renin and aldosterone activity- ordered when unsure of hyponatremia and HTN urgency. All problems likely related to some component of GBS Was started on spirinolactone for HTN urgency problem above. It has since then been discontinued. Likely will not need -Serum Osm low a few days ago. Thought Likely related to medications. Stopped furosemide and spirinolactone for the time being. Was on furosemide at home. May need to continue in future. -Nephrology- Vasudev consulted Added salt pills and fluid restricted to 1500 ml a day. -Ordered metanephrines levels at this time Constipation -Related to GBS. Having Active Bowel sounds -Colace and suppository given yesterday. Still no bowel movment. Added mag citrate. Delirium A&Ox3. HLD -continue home meds CAD s/p CABG in past -Aspirin being held due to hematuria. -Continuing all other home medications at this time. Cough - likely 2/2 atelectasis. Will order CXR - suspicion for PNA is low given normal vitals Dispo - ready to dc to inpt rehab pending Dr Decker's recommendation
[2017-03-24] MEDS ORDERED: Sodium Chloride 1 GM TAB PO SCH (09:00)
[2017-03-24] MEDS: Carvedilol 6.25 MG TAB PO SCH (10:03)
--- NOTE | 2017-03-24 14:38 | ADD-PRG ---
DATE OF SERVICE: 03/24/2017 This is an addendum to the note of Dr. Jorge Begum. Mr. 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 This morning, he is completely awake and alert. He describes no respiratory difficulty and appears to be breathing normally. His serum sodium is also being replenished slowly and was likely due to SIADH se condary to the Guillain-[place] syndrome. He will be transferred to a regular room this morning and is[place] s also been cleared by Pulmonology. We await transfer to rehabilitation center for recovery.
[2017-03-24 19:37] VITALS: BP 160/79; TEMP 98.2
--- NOTE | 2017-03-24 21:44 | PRG ---
DATE OF SERVICE: 03/24/2017 SUBJECTIVE: Patient was seen and examined at bedside and overnight events noted. Patient denies any shortness of breath or chest pain or palpitation. No history of nausea or vomiting or diarrhea or f ever or chills or cramps. OBJECTIVE: GENERAL: This is a well-built male, in no apparent distress. VITAL SIGNS: Temperature 97.6, pulse 65, respiratory rate 17. Blood pressure 149/81. HEENT: Atraumatic, normocephalic, Oral mucosa is moist NECK: Supple. CARDIOVASCULAR: S1, S2 heard, rate and rhythm regular. RESPIRATORY: Clear to auscultation. GASTROINTESTINAL: Abdomen is soft. MUSCULOSKELETAL: No tenderness, no edema. DERMATOLOGIC: No skin rash. NEUROLOGIC: Alert and awake and oriented X3, no focal neurologic deficits. Moving all the extremiti es. PSYCHIATRIC: Mood and affect normal. LABORATORY DATA: Sodium 133, potassium 4.4, creatinine 1.03. ASSESSMENT AND PLAN: 1. Hyponatremia. Sodium level getting better. Continue on fluid restriction and salt tablets for f ew more days. 2. Hypochloremia. 3. Hypertension. 4. Edema controlled. 5. Guillain-[place] syndrome. 6. Sodium level is getting better. We will follow. Limit fluid intake.
[2017-03-25] MEDS ORDERED: methylPREDNISolone 4 mg Tablet PO SCH ×2 (08:00→09:00)
[2017-03-25 17:11] LABS: Metanephrine,Plasma 48 pg/mL (0-62); Normetanephrine,Pl 184 pg/mL (0-145)
== END 2017-03-24 20:05 | DRG 95 ==
LOC: ERS 21:11 → ERHOLD 03-15 02:31 → 2SW 03-15 13:40 → OBSVTOIN 03-17 14:53 → IMCU/EMU 03-20 21:47 → 2SE 03-24 10:33
PROVIDERS: ADMIT Family Medicine; ATTEND Family Medicine
PROC: 0T9B80Z Drainage of Bladder with Drainage Device, Via Natural or Artificial Opening Endoscopic (ICD-10-PCS; principal; 2017-03-20)
PROC: 009U3ZZ Drainage of Spinal Canal, Percutaneous Approach (ICD-10-PCS; 2017-03-20)
PROC: B01BYZZ Fluoroscopy of Spinal Cord using Other Contrast (ICD-10-PCS; 2017-03-20)
DX: G61.0 Guillain-Barre syndrome (principal); N17.9 Acute kidney failure, unspecified; E22.2 Syndrome of inappropriate secretion of antidiuretic hormone; R06.89 Other abnormalities of breathing; S37.33XA Laceration of urethra, initial encounter; E22.1 Hyperprolactinemia; N13.8 Other obstructive and reflux uropathy; J98.11 Atelectasis; Z95.1 Presence of aortocoronary bypass graft; E87.8 Other disorders of electrolyte and fluid balance, not elsewhere classified; R31.0 Gross hematuria; I16.0 Hypertensive urgency; Z95.2 Presence of prosthetic heart valve; I10 Essential (primary) hypertension; E78.5 Hyperlipidemia, unspecified; I25.10 Atherosclerotic heart disease of native coronary artery without angina pectoris; N40.1 Benign prostatic hyperplasia with lower urinary tract symptoms; R33.8 Other retention of urine; R60.9 Edema, unspecified; M48.061 Spinal stenosis, lumbar region without neurogenic claudication; R26.9 Unspecified abnormalities of gait and mobility; S37.829A Unspecified injury of prostate, initial encounter; N41.9 Inflammatory disease of prostate, unspecified; R41.0 Disorientation, unspecified; K59.00 Constipation, unspecified
CPT/HCPCS: 36415; 62270; 70450; 70553; 71010; 71020; 71275; 72141; 72148; 72156; 72157; 74177; 76770; 80048; 80053; 81003; 81015; 82088; 82533; 82553; 82805; 82945; 83690; 83735; 83835; 83880; 83930; 83935; 84146; 84157; 84244; 84300; 84443; 84484; 85025; 85379; 85610; 85730; 87040; 87086; 89051; 93005; 93306; 93976; 94150; 94640; 94660; 96361; 96374; A9579; G8978-GP-CM; G8978-GP-CN; G8979-GP-CI; G8979-GP-CK; G8987-GO-CK; G8987-GO-CL; G8988-GO-CJ; G8996-GN-CJ; G8996-GN-CK; G8997-GN-CJ; J0360; J1568; J1650; J2405; J7131; J7620; Q0162